=== PATIENT | female | born 1945 | race Caucasian/White ===

== ENCOUNTER 2017-06-29 11:35 | Inpatient (IN) | payer MEDICARE, BC ==
[~2017-06-29] VITALS: Ht 167.6 cm; Wt 73.4 kg
[~2017-06-29 11:35] MED LIST: ACID1TAB7 PO; ALBU1.25 NEB; ALBU18HF INH; AMLO2.5T PO; ASPI-621 PO; ATOR40TA78 PO; BECL8.7A7 INH; CEFD300C37 PO; DOCU-131 PO; LACT1CAP37 PO; LISI-170 PO; LISI2.5T PO; METR500T PO; METR500T8 PO; ONDA4TAB7 PO; POTA20PA25 PO; TIOT18CA INH
[2017-06-29] MEDS ORDERED: SODIUM CHLORIDE FLUSH 10ML SYR IVF ONE (12:00)
[2017-06-29 12:27] LABS: BASOPHILS # (AUTO) 0.01 x10^3/uL (0-0.1); BASOPHILS % (AUTO) 0 % (0-1); EOSINOPHILS % (AUTO) 0 % (1-7); LYMPHOCYTES # (AUTO) 1.38 x10^3/uL (1-3.4); LYMPHOCYTES % (AUTO) 18 % (22-44); MD NO; MEAN CORPUSCULAR HGB CONC 33.9 g/dL (32.4-35.8); MEAN CORPUSCULAR VOLUME 85.6 fL (80-100); MEAN PLATELET VOLUME 9.7 fL (7.4-10.4); MONOCYTES # (AUTO) 0.64 x10^3/uL (0.2-0.8); MONOCYTES % (AUTO) 8 % (2-9); NEUTROPHILS # (AUTO) 5.88 x10^3/uL (1.8-6.8); NEUTROPHILS % (AUTO) 74 % (42-75); PLATELET COUNT 259 x10^3/uL (130-400); RED BLOOD COUNT 5.62 x10^6/uL (3.82-5.3); RED CELL DISTRIBUTION WIDTH 14.6 % (9.6-15.2)
[2017-06-29 12:40] LABS: ALANINE AMINOTRANSFERASE 15 U/L (12-78); ANION GAP 11 mmol/L (5-15); CALCIUM 9.2 mg/dL (8.5-10.1); CHLORIDE 100 mmol/L (98-107); CREATININE 0.98 mg/dL (0.55-1.02)
[2017-06-29 12:43] LABS: ALBUMIN 3.8 g/dL (3.4-5.0); ALKALINE PHOSPHATASE 109 U/L (45-117); BILIRUBIN,TOTAL 0.6 mg/dL (0.2-1.0); TOTAL PROTEIN 8.1 g/dL (6.4-8.2); TROPONIN I < 0.015 ng/mL (0.000-0.045)
[2017-06-29 13:13] LABS: ACETAMINOPHEN < 2 mcg/mL (10-30); SALICYLATE LEVEL < 1.7 mg/dL (2.8-20.0)
[2017-06-29 13:19] LABS: MICROSCOPIC INDICATED
[2017-06-29 13:27] LABS: CULTURE INDICATED? NO
[2017-06-29 13:37] LABS: AMPHETAMINE SCREEN, URINE Negative (Negative); BARBITURATE SCREEN, URINE Negative (Negative); BENZODIAZEPINE SCREEN, URINE Negative (Negative); CANNABINOID SCREEN, URINE Negative (Negative); COCAINE SCREEN, URINE Negative (Negative); METHADONE SCREEN, URINE Negative (Negative); OPIATE SCREEN, URINE Negative (Negative)
[2017-06-29] MEDS ORDERED: SODIUM CHLORIDE 0.9% 1,000ML IVBOLUS ONE (14:00)
[2017-06-29] MEDS: SODIUM CHLORIDE 0.9% 1,000 ML IV SCH ×2 (14:40→19:58)
[2017-06-29] MEDS: ENOXAPARIN 40 MG/0.4 ML SQ SCH (15:00)
[2017-06-29 15:53] VITALS: BP 146/104
[2017-06-29] MEDS: ATORVASTATIN 40 MG TABLET PO SCH (19:59)
[2017-06-29 20:26] VITALS: BP 147/100
[2017-06-30 02:10] VITALS: BP 154/108
[2017-06-30] MEDS ORDERED: LABETALOL 5MG/ML, 20ML IVPush PRN (02:30)
[2017-06-30 05:36] LABS: CHLORIDE 103 mmol/L (98-107)
[2017-06-30 05:45] LABS: ALANINE AMINOTRANSFERASE 15 U/L (12-78); ALBUMIN 3.5 g/dL (3.4-5.0); ALKALINE PHOSPHATASE 103 U/L (45-117); ANION GAP 8 mmol/L (5-15); BILIRUBIN,TOTAL 0.7 mg/dL (0.2-1.0); CALCIUM 9.2 mg/dL (8.5-10.1); CREATININE 0.84 mg/dL (0.55-1.02); TOTAL PROTEIN 7.6 g/dL (6.4-8.2)
[2017-06-30] MEDS: ASPIRIN 81 MG TABLET EC PO SCH (06:07)
[2017-06-30 06:09] LABS: MEAN CORPUSCULAR HEMOGLOBIN 28.5 pg (27.0-34.8); MEAN CORPUSCULAR HGB CONC 33.1 g/dL (32.4-35.8); MEAN CORPUSCULAR VOLUME 86.2 fL (80-100); MEAN PLATELET VOLUME 11.3 fL (7.4-10.4); PLATELET COUNT 229 x10^3/uL (130-400); RED BLOOD COUNT 5.41 x10^6/uL (3.82-5.3); RED CELL DISTRIBUTION WIDTH 14.9 % (9.6-15.2)
[2017-06-30 06:37] LABS: BASOPHILS # (AUTO) 0.04 x10^3/uL (0-0.1); BASOPHILS % (AUTO) 1 % (0-1); EOSINOPHILS % (AUTO) 0 % (1-7); LYMPHOCYTES # (AUTO) 2.92 x10^3/uL (1-3.4); LYMPHOCYTES % (AUTO) 36 % (22-44); MD MORPH REVIEW ONLY; MONOCYTES # (AUTO) 1.05 x10^3/uL (0.2-0.8); MONOCYTES % (AUTO) 13 % (2-9); NEUTROPHILS # (AUTO) 4.08 x10^3/uL (1.8-6.8); NEUTROPHILS % (AUTO) 50 % (42-75)
[2017-06-30 06:38] LABS: <RBC MORPHOLOGY> NORMAL
[2017-06-30 06:39] LABS: <PLATELET ESTIMATE> ADEQUATE; HYPOGRAN PLTS 1+; LARGE PLATELETS 1+
[2017-06-30 08:14] VITALS: BP 127/90
[2017-06-30] MEDS: SODIUM CHLORIDE 0.9% 1,000 ML IV SCH ×2 (09:31→21:46)
[2017-06-30] MEDS: AMLODIPINE 5 MG TABLET PO SCH (09:31)
[2017-06-30] MEDS: LISINOPRIL 20 MG TABLET PO SCH (09:31)
[2017-06-30 13:57] VITALS: BP 120/79
[2017-06-30] MEDS: ENOXAPARIN 40 MG/0.4 ML SQ SCH (15:00)
[2017-06-30 19:26] VITALS: BP 117/74
[2017-06-30] MEDS: ATORVASTATIN 40 MG TABLET PO SCH (20:03)
[2017-07-01 01:48] VITALS: BP 122/75
[2017-07-01] MEDS: ASPIRIN 81 MG TABLET EC PO SCH (05:08)
[2017-07-01 07:18] VITALS: BP 149/83
[2017-07-01] MEDS: LISINOPRIL 20 MG TABLET PO SCH (10:13)
[2017-07-01] MEDS: AMLODIPINE 5 MG TABLET PO SCH (10:14)
[2017-07-01] MEDS: SODIUM CHLORIDE 0.9% 1,000 ML IV SCH (11:42)
[2017-07-01 13:29] VITALS: BP 127/82
[2017-07-01] MEDS: ENOXAPARIN 40 MG/0.4 ML SQ SCH (15:00)
[2017-07-01 15:44] LABS: CLOSTRIDIUM DIFFICILE ANTIGEN NEGATIVE; CLOSTRIDIUM DIFFICILE TOXIN NEGATIVE (Negative)
[2017-07-01] MEDS: ATORVASTATIN 40 MG TABLET PO SCH (19:28)
[2017-07-01 19:56] VITALS: BP 150/89
[2017-07-02 01:45] VITALS: BP 160/94
[2017-07-02] MEDS: ASPIRIN 81 MG TABLET EC PO SCH (05:30)
[2017-07-02] MEDS: SODIUM CHLORIDE 0.9% 1,000 ML IV SCH (05:31)
[2017-07-02 07:15] VITALS: BP 154/91
[2017-07-02] MEDS: AMLODIPINE 5 MG TABLET PO SCH (09:53)
[2017-07-02] MEDS: LISINOPRIL 20 MG TABLET PO SCH (09:54)
[2017-07-02 14:03] VITALS: BP 131/84
[2017-07-02] MEDS: ENOXAPARIN 40 MG/0.4 ML SQ SCH (15:00)
== END 2017-07-02 16:45 | disposition home or self-care (01) | DRG 865 ==
LOC: ED 14:39 → 3NE 14:40 → ED 15:49 → DCLOUNGE 07-02 16:05
PROVIDERS: ADMIT Family Medicine; ATTEND Family Medicine
PROC: 0T9B70Z Drainage of Bladder with Drainage Device, Via Natural or Artificial Opening (ICD-10-PCS; principal; 2017-06-29)
DX: B34.9 Viral infection, unspecified (principal); G93.41 Metabolic encephalopathy; I27.20 Pulmonary hypertension, unspecified; E87.1 Hypo-osmolality and hyponatremia; G30.0 Alzheimer's disease with early onset; F02.80 Dementia in other diseases classified elsewhere, unspecified severity, without behavioral disturbance, psychotic disturbance, mood disturbance, and anxiety; I11.9 Hypertensive heart disease without heart failure; E78.5 Hyperlipidemia, unspecified; E86.0 Dehydration; F41.9 Anxiety disorder, unspecified; J44.9 Chronic obstructive pulmonary disease, unspecified; R32 Unspecified urinary incontinence; Z82.49 Family history of ischemic heart disease and other diseases of the circulatory system; Z86.73 Personal history of transient ischemic attack (TIA), and cerebral infarction without residual deficits; Z87.891 Personal history of nicotine dependence; Z88.6 Allergy status to analgesic agent
CPT/HCPCS: 36415; 70450; 71045; 80053; 80307; 80329; 81001; 82140; 83605; 83735; 84484; 85025; 87040; 87324; 93005; 96360; 92523-GN; G0480; J7030

== ENCOUNTER 2017-12-10 15:07 | Inpatient (IN) | payer MEDICARE, OTHER ==
[~2017-12-10] VITALS: Ht 165.1 cm; Wt 73.0 kg
[~2017-12-10 15:07] MED LIST changes: -AMLO2.5T PO; +AMLO2.5T5 PO; -ASPI-621 PO; +ASPI81TA45 PO; +METR-90 PO; -METR500T8 PO
--- NOTE | 2017-12-10 15:13 | NUR ---
BIBA, PT WAS FOUND PRONE ON BED BY FAMILY. PT WAS SOILED NON-VERBAL. PT PRESENTS TO THE ER NON-VERBAL, WILL OPEN HER EYES AND TURN TOWARDS WHEN HER NAME IS CALLED. PT DOES NOT FOLLOW COMMANDS, MOVES ALL EXTREMITIES. PT HAS A GCS OF 9. PT ON CONTINUOUS SPO2, CARDIAC, AND BLOOD PRESSURE MONITOR. AWAITING ORDERS.
--- NOTE | 2017-12-10 15:25 | NUR ---
PT'S SON AT BEDSIDE. ATTEMPTING TO GET MORE INFORMATION FROM SON.
--- NOTE | 2017-12-10 15:49 | NUR ---
Bud brumfield in [facility] - 12/10/17 at 1554 by CLOTILDE O2 while ambulating @91 to 92%.
--- NOTE | 2017-12-10 15:51 | NUR ---
PT TAKEN TO CT
[2017-12-10 15:59] LABS: INTERNATIONAL NORMALIZED RATIO 1.08 (0.93-1.1); PROTHROMBIN TIME 11.2 Seconds (9.6-11.5)
[2017-12-10 16:00] LABS: ALANINE AMINOTRANSFERASE 16 U/L (12-78); ALBUMIN 3.7 g/dL (3.4-5.0); ANION GAP 7 mmol/L (5-15); CALCIUM 9.5 mg/dL (8.5-10.1); CHLORIDE 107 mmol/L (98-107); CREATININE 0.87 mg/dL (0.55-1.02)
[2017-12-10] MEDS ORDERED: LABETALOL 5MG/ML, 20ML IVPush ONE (16:00)
[2017-12-10 16:03] LABS: ALKALINE PHOSPHATASE 120 U/L (45-117); BILIRUBIN,TOTAL 0.3 mg/dL (0.2-1.0); TOTAL PROTEIN 7.9 g/dL (6.4-8.2)
[2017-12-10] MEDS ORDERED: LABETALOL 5MG/ML, 20ML ONE (16:10)
[2017-12-10 16:15] LABS: MEAN CORPUSCULAR HEMOGLOBIN 27.4 pg (27.0-34.8); MEAN CORPUSCULAR HGB CONC 32.9 g/dL (32.4-35.8); MEAN CORPUSCULAR VOLUME 83.3 fL (80-100); MEAN PLATELET VOLUME 10.6 fL (7.4-10.4); PLATELET COUNT 228 x10^3/uL (130-400); RED BLOOD COUNT 5.62 x10^6/uL (3.82-5.3); RED CELL DISTRIBUTION WIDTH 14.8 % (9.6-15.2)
[2017-12-10 16:16] LABS: BASOPHILS # (AUTO) 0.03 x10^3/uL (0-0.1); BASOPHILS % (AUTO) 1 % (0-1); EOSINOPHILS # (AUTO) 0.01 x10^3/uL (0-0.4); EOSINOPHILS % (AUTO) 0 % (1-7); LYMPHOCYTES % (AUTO) 23 % (22-44); MD SCAN; MONOCYTES % (AUTO) 8 % (2-9); NEUTROPHILS # (AUTO) 3.61 x10^3/uL (1.8-6.8); NEUTROPHILS % (AUTO) 69 % (42-75)
--- NOTE | 2017-12-10 16:20 | NUR ---
TASK RN: PT MEDICATED PER EMAR FOR HTN W/ GOAL SBP OF 150mmHg, PER ERP. PT SITTING W/ HOB GREATER THAN 30 DEGREES. SECOND IV ESTABLISHED. SON UPDATED TO POC (ADMIT) AND DEMONSTRATES UNDERSTANDING. RUE WEAKNESS NOTED; MOVES ALL OTHER EXTREMITIES. PT EYE OPENING W/ VERBAL STIMULI. PWD.
[2017-12-10 16:29] LABS: CULTURE INDICATED? YES; MICROSCOPIC INDICATED
--- NOTE | 2017-12-10 17:01 | NUR ---
REPORT GIVEN TO LUCHO
[2017-12-10] MEDS ORDERED: POLYETHYLENE GLYCOL 17 GM PACKET PO PRN (17:30)
[2017-12-10] MEDS ORDERED: INSTRUCTION SEE COMMENTS XX ONE (17:30)
[2017-12-10] MEDS ORDERED: DOCUSATE 100 MG CAPSULE PO PRN (17:30)
[2017-12-10] MEDS ORDERED: BISACODYL 10 MG SUPP PR PRN (17:30)
[2017-12-10] MEDS ORDERED: ONDANSETRON 2MG/ML, 2ML IVPush PRN (17:30)
[2017-12-10] MEDS: SODIUM CHLORIDE 0.9% 1,000 ML IV SCH (18:23)
[2017-12-10] MEDS: CEFTRIAXONE 1,000 MG in SODIUM CHLORIDE 0.9% 50 ML IV SCH (18:23)
[2017-12-10] MEDS: FAMOTIDINE 20 MG/2 ML IVPush SCH (20:48)
[2017-12-10] MEDS: ATORVASTATIN 80 MG TABLET PO SCH (20:48)
[2017-12-11 04:00] VITALS: BP 124/80
[2017-12-11 04:56] LABS: ALANINE AMINOTRANSFERASE 12 U/L (12-78); ALBUMIN 3.3 g/dL (3.4-5.0); ANION GAP 8 mmol/L (5-15); CALCIUM 8.9 mg/dL (8.5-10.1); CHLORIDE 108 mmol/L (98-107); CHOLESTEROL, TOTAL 117 mg/dL (140-239); CREATININE 0.61 mg/dL (0.55-1.02)
[2017-12-11 04:58] LABS: ALKALINE PHOSPHATASE 109 U/L (45-117); BILIRUBIN,TOTAL 0.3 mg/dL (0.2-1.0); CHOL/HDL RATIO 1.8; HDL CHOL % 56 % (28-40); HDL CHOLESTEROL (DIRECT) 66 mg/dL (40-60); LDL CHOLESTEROL,CALCULATED 35 mg/dL (54-169); LDL/HDL RATIO 0.5 (0.5-3.0); TOTAL PROTEIN 7.2 g/dL (6.4-8.2); TRIGLYCERIDES 79 mg/dL (50-200); VLDL CHOLESTEROL 16 mg/dL (0-25)
[2017-12-11 07:06] LABS: BASOPHILS # (AUTO) 0.03 x10^3/uL (0-0.1); BASOPHILS % (AUTO) 0 % (0-1); EOSINOPHILS % (AUTO) 0 % (1-7); LYMPHOCYTES # (AUTO) 1.28 x10^3/uL (1-3.4); LYMPHOCYTES % (AUTO) 11 % (22-44); MD SCAN; MEAN CORPUSCULAR HEMOGLOBIN 27.6 pg (27.0-34.8); MEAN CORPUSCULAR HGB CONC 33.2 g/dL (32.4-35.8); MEAN CORPUSCULAR VOLUME 83.3 fL (80-100); MEAN PLATELET VOLUME 10.3 fL (7.4-10.4); MONOCYTES # (AUTO) 0.89 x10^3/uL (0.2-0.8); MONOCYTES % (AUTO) 8 % (2-9); NEUTROPHILS # (AUTO) 9.37 x10^3/uL (1.8-6.8); NEUTROPHILS % (AUTO) 81 % (42-75); PLATELET COUNT 215 x10^3/uL (130-400); RED BLOOD COUNT 5.22 x10^6/uL (3.82-5.3)
[2017-12-11] MEDS: SODIUM CHLORIDE 0.9% 1,000 ML IV SCH ×2 (08:40→20:16)
[2017-12-11] MEDS: FAMOTIDINE 20 MG/2 ML IVPush SCH ×2 (09:06→20:16)
--- NOTE | 2017-12-11 13:49 | NUR ---
TF goal recs: Jevity 1.2 @ 55 ml/hour
[2017-12-11] MEDS: CEFTRIAXONE 1,000 MG in SODIUM CHLORIDE 0.9% 50 ML IV SCH (18:29)
[2017-12-11] MEDS: ATORVASTATIN 80 MG TABLET PO SCH (20:16)
[2017-12-12 04:00] VITALS: BP 136/94
[2017-12-12] MEDS ORDERED: VANCOMYCIN PER PHARMACY MC PRN (07:30)
[2017-12-12] MEDS: VANCOMYCIN 1,300 MG in SODIUM CHLORIDE 0.9% 250 ML IV SCH (07:53)
[2017-12-12] MEDS ORDERED: PHARMACOKINETIC CONSULTATION MC ONE (08:00)
[2017-12-12] MEDS ORDERED: PHARMACOKINETIC MONITORING MC PRN (08:00)
[2017-12-12] MEDS: FAMOTIDINE 20 MG/2 ML IVPush SCH (09:11)
[2017-12-12] MEDS: LISINOPRIL 20 MG TABLET PO SCH (11:00)
[2017-12-12] MEDS: AMLODIPINE 5 MG TABLET PO SCH (11:00)
[2017-12-12] MEDS: SODIUM CHLORIDE 0.9% 1,000 ML IV SCH (14:12)
[2017-12-12] MEDS: CEFTRIAXONE 1,000 MG in SODIUM CHLORIDE 0.9% 50 ML IV SCH (17:47)
[2017-12-12] MEDS: ACETAMINOPHEN 325 MG TABLET PO PRN (21:49)
[2017-12-12] MEDS: ATORVASTATIN 80 MG TABLET PO SCH (21:49)
[2017-12-13] MEDS: SODIUM CHLORIDE 0.9% 1,000 ML IV SCH ×2 (02:29→17:18)
[2017-12-13 04:00] VITALS: BP 134/76
[2017-12-13 04:25] LABS: BASOPHILS # (AUTO) 0.03 x10^3/uL (0-0.1); BASOPHILS % (AUTO) 0 % (0-1); EOSINOPHILS # (AUTO) 0.02 x10^3/uL (0-0.4); EOSINOPHILS % (AUTO) 0 % (1-7); LYMPHOCYTES # (AUTO) 1.23 x10^3/uL (1-3.4); LYMPHOCYTES % (AUTO) 17 % (22-44); MD NO; MEAN CORPUSCULAR HEMOGLOBIN 27.7 pg (27.0-34.8); MEAN CORPUSCULAR HGB CONC 32.9 g/dL (32.4-35.8); MEAN CORPUSCULAR VOLUME 84.4 fL (80-100); MEAN PLATELET VOLUME 9.4 fL (7.4-10.4); MONOCYTES # (AUTO) 0.97 x10^3/uL (0.2-0.8); MONOCYTES % (AUTO) 13 % (2-9); NEUTROPHILS # (AUTO) 5.02 x10^3/uL (1.8-6.8); NEUTROPHILS % (AUTO) 69 % (42-75); PLATELET COUNT 219 x10^3/uL (130-400); RED BLOOD COUNT 4.89 x10^6/uL (3.82-5.3); RED CELL DISTRIBUTION WIDTH 14.4 % (9.6-15.2)
[2017-12-13] MEDS: VANCOMYCIN 1,300 MG in SODIUM CHLORIDE 0.9% 250 ML IV SCH (08:20)
[2017-12-13] MEDS: LISINOPRIL 20 MG TABLET PO SCH (08:21)
[2017-12-13] MEDS: AMLODIPINE 5 MG TABLET PO SCH (08:21)
[2017-12-13 11:10] VITALS: BP 166/98
[2017-12-13] MEDS: ENALAPRILAT 1.25 MG/ML, 2ML IV PRN (11:58)
[2017-12-13 12:46] VITALS: BP 130/85
[2017-12-13 13:43] VITALS: BP 140/86
[2017-12-13] MEDS: CEFTRIAXONE 1,000 MG in SODIUM CHLORIDE 0.9% 50 ML IV SCH (17:18)
[2017-12-13 19:20] VITALS: BP 155/91
[2017-12-13] MEDS: ATORVASTATIN 80 MG TABLET PO SCH (21:00)
[2017-12-14 01:43] VITALS: BP 166/100
[2017-12-14 02:21] VITALS: BP 166/98
[2017-12-14] MEDS: ENALAPRILAT 1.25 MG/ML, 2ML IV PRN (02:28)
[2017-12-14] MEDS: SODIUM CHLORIDE 0.9% 1,000 ML IV SCH ×2 (06:33→21:18)
[2017-12-14 06:55] VITALS: BP 174/95
[2017-12-14] MEDS: AMLODIPINE 5 MG TABLET PO SCH (07:50)
[2017-12-14] MEDS: LISINOPRIL 20 MG TABLET PO SCH (07:50)
[2017-12-14] MEDS: VANCOMYCIN 1,300 MG in SODIUM CHLORIDE 0.9% 250 ML IV SCH (09:10)
[2017-12-14 12:54] VITALS: BP 177/92
[2017-12-14] MEDS: LABETALOL 5MG/ML, 20ML IVPush PRN (13:30)
[2017-12-14] MEDS: CEFTRIAXONE 1,000 MG in SODIUM CHLORIDE 0.9% 50 ML IV SCH (17:36)
[2017-12-14 19:50] VITALS: BP 156/102
[2017-12-14] MEDS: ATORVASTATIN 80 MG TABLET PO SCH (21:18)
[2017-12-15] VITALS (8 sets, daily range): BP systolic 152–184; BP diastolic 88–116
[2017-12-15] MEDS: LABETALOL 5MG/ML, 20ML IVPush PRN ×2 (02:05→20:16)
[2017-12-15] MEDS: SODIUM CHLORIDE 0.9% 1,000 ML IV SCH (08:22)
[2017-12-15] MEDS: AMLODIPINE 5 MG TABLET PO SCH (08:22)
[2017-12-15] MEDS: LISINOPRIL 20 MG TABLET PO SCH (08:22)
[2017-12-15] MEDS: ENALAPRILAT 1.25 MG/ML, 2ML IV PRN ×2 (11:14→22:30)
[2017-12-15] MEDS ORDERED: cloniDINE 0.1MG PATCH TD SCH (17:00)
[2017-12-15] MEDS: ATORVASTATIN 80 MG TABLET PO SCH (20:16)
[2017-12-16] VITALS (10 sets, daily range): BP systolic 148–174; BP diastolic 97–111
[2017-12-16] MEDS: LABETALOL 5MG/ML, 20ML IVPush PRN ×4 (00:06→23:55)
[2017-12-16] MEDS: SODIUM CHLORIDE 0.9% 1,000 ML IV SCH ×2 (00:11→14:36)
[2017-12-16] MEDS: ENALAPRILAT 1.25 MG/ML, 2ML IV PRN ×4 (04:17→23:40)
[2017-12-16] MEDS: AMLODIPINE 5 MG TABLET PO SCH (08:15)
[2017-12-16] MEDS: LISINOPRIL 20 MG TABLET PO SCH (08:15)
[2017-12-16] MEDS: ATORVASTATIN 80 MG TABLET PO SCH (19:50)
[2017-12-17] VITALS (16 sets, daily range): BP systolic 144–177; BP diastolic 91–119
[2017-12-17] MEDS: LABETALOL 5MG/ML, 20ML IVPush PRN ×4 (04:20→22:16)
[2017-12-17] MEDS: SODIUM CHLORIDE 0.9% 1,000 ML IV SCH ×2 (04:20→17:20)
[2017-12-17] MEDS: ENALAPRILAT 1.25 MG/ML, 2ML IV PRN ×3 (04:58→21:06)
[2017-12-17] MEDS: LISINOPRIL 20 MG TABLET PO SCH (09:18)
[2017-12-17] MEDS: AMLODIPINE 5 MG TABLET PO SCH (09:18)
[2017-12-17] MEDS: METOPROLOL TARTRATE 50 MG TABLET PO SCH ×2 (17:20→20:11)
[2017-12-17] MEDS: ATORVASTATIN 80 MG TABLET PO SCH (20:11)
[2017-12-18] VITALS (7 sets, daily range): BP systolic 143–165; BP diastolic 87–96
[2017-12-18] MEDS: ENALAPRILAT 1.25 MG/ML, 2ML IV PRN (02:33)
[2017-12-18] MEDS: METOPROLOL TARTRATE 50 MG TABLET PO SCH ×2 (09:33→20:42)
[2017-12-18] MEDS: SODIUM CHLORIDE 0.9% 1,000 ML IV SCH ×2 (09:33→22:14)
[2017-12-18] MEDS: AMLODIPINE 5 MG TABLET PO SCH (09:33)
[2017-12-18] MEDS: LISINOPRIL 20 MG TABLET PO SCH (09:33)
[2017-12-18] MEDS: ATORVASTATIN 80 MG TABLET PO SCH (20:41)
[2017-12-19 01:30] VITALS: BP 162/101
[2017-12-19 02:00] VITALS: BP 165/95
[2017-12-19] MEDS: LABETALOL 5MG/ML, 20ML IVPush PRN (02:43)
[2017-12-19 02:44] VITALS: BP 167/94
[2017-12-19 04:12] VITALS: BP 146/83
[2017-12-19 07:12] VITALS: BP 158/106
[2017-12-19] MEDS: METOPROLOL TARTRATE 50 MG TABLET PO SCH ×2 (09:31→20:27)
[2017-12-19] MEDS: AMLODIPINE 5 MG TABLET PO SCH (09:31)
[2017-12-19] MEDS: LISINOPRIL 20 MG TABLET PO SCH (09:31)
[2017-12-19] MEDS: SODIUM CHLORIDE 0.9% 1,000 ML IV SCH (10:40)
[2017-12-19 20:00] VITALS: BP 158/95
[2017-12-19] MEDS: ATORVASTATIN 80 MG TABLET PO SCH (20:27)
[2017-12-20 00:12] VITALS: BP 157/94
[2017-12-20] MEDS: SODIUM CHLORIDE 0.9% 1,000 ML IV SCH ×2 (00:12→13:20)
[2017-12-20 04:00] VITALS: BP 152/97
[2017-12-20 08:23] VITALS: BP 164/93
[2017-12-20] MEDS: LISINOPRIL 20 MG TABLET PO SCH (09:46)
[2017-12-20] MEDS: METOPROLOL TARTRATE 50 MG TABLET PO SCH ×2 (09:47→22:25)
[2017-12-20] MEDS: AMLODIPINE 5 MG TABLET PO SCH (09:47)
[2017-12-20 13:40] VITALS: BP 145/90
[2017-12-20 19:56] VITALS: BP 145/82
[2017-12-20] MEDS: ATORVASTATIN 80 MG TABLET PO SCH (22:25)
[2017-12-21 02:34] VITALS: BP 141/94
[2017-12-21] MEDS: SODIUM CHLORIDE 0.9% 1,000 ML IV SCH ×2 (03:48→18:00)
[2017-12-21 06:48] VITALS: BP 156/94
[2017-12-21] MEDS: LISINOPRIL 20 MG TABLET PO SCH (09:12)
[2017-12-21] MEDS: AMLODIPINE 5 MG TABLET PO SCH (09:12)
[2017-12-21] MEDS: METOPROLOL TARTRATE 50 MG TABLET PO SCH ×2 (09:12→21:25)
[2017-12-21 12:22] VITALS: BP 152/98
[2017-12-21] MEDS ORDERED: GADOBUTROL 7.5 MMOL/7.5 ML PFS ONE (14:00)
[2017-12-21 20:07] VITALS: BP 155/89
[2017-12-21] MEDS: ATORVASTATIN 80 MG TABLET PO SCH (21:24)
[2017-12-22 02:33] VITALS: BP 143/91
[2017-12-22] MEDS: SODIUM CHLORIDE 0.9% 1,000 ML IV SCH ×2 (06:34→20:05)
[2017-12-22 07:16] VITALS: BP 153/96
[2017-12-22] MEDS: LISINOPRIL 20 MG TABLET PO SCH (07:59)
[2017-12-22] MEDS: METOPROLOL TARTRATE 50 MG TABLET PO SCH ×2 (07:59→20:05)
[2017-12-22] MEDS: AMLODIPINE 5 MG TABLET PO SCH (07:59)
[2017-12-22 09:51] VITALS: BP 165/91
[2017-12-22 10:00] VITALS: BP 151/94
[2017-12-22] MEDS ORDERED: ALBUTEROL SULFATE 2.5 MG/3 ML NPPB PRN (11:00)
[2017-12-22 13:22] VITALS: BP 144/97
[2017-12-22 19:29] VITALS: BP 155/96
[2017-12-22] MEDS: ATORVASTATIN 80 MG TABLET PO SCH (20:05)
[2017-12-23 01:08] VITALS: BP 151/91
[2017-12-23 04:05] VITALS: BP 152/93
[2017-12-23 06:49] VITALS: BP 144/93
[2017-12-23 09:31] LABS: BASOPHILS # (AUTO) 0.09 x10^3/uL (0-0.1); BASOPHILS % (AUTO) 1 % (0-1); EOSINOPHILS # (AUTO) 0.14 x10^3/uL (0-0.4); EOSINOPHILS % (AUTO) 2 % (1-7); LYMPHOCYTES # (AUTO) 2.58 x10^3/uL (1-3.4); LYMPHOCYTES % (AUTO) 31 % (22-44); MD NO; MEAN CORPUSCULAR HEMOGLOBIN 27.6 pg (27.0-34.8); MEAN CORPUSCULAR HGB CONC 33.6 g/dL (32.4-35.8); MEAN CORPUSCULAR VOLUME 82.3 fL (80-100); MEAN PLATELET VOLUME 9.6 fL (7.4-10.4); MONOCYTES # (AUTO) 0.91 x10^3/uL (0.2-0.8); MONOCYTES % (AUTO) 11 % (2-9); NEUTROPHILS # (AUTO) 4.62 x10^3/uL (1.8-6.8); NEUTROPHILS % (AUTO) 56 % (42-75); PLATELET COUNT 316 x10^3/uL (130-400); RED BLOOD COUNT 4.94 x10^6/uL (3.82-5.3); RED CELL DISTRIBUTION WIDTH 14.3 % (9.6-15.2)
[2017-12-23 09:41] LABS: INTERNATIONAL NORMALIZED RATIO 1.08 (0.93-1.1); PROTHROMBIN TIME 11.2 Seconds (9.6-11.5)
[2017-12-23 09:43] LABS: ANION GAP 9 mmol/L (5-15); CHLORIDE 100 mmol/L (98-107); CREATININE 0.52 mg/dL (0.55-1.02)
[2017-12-23] MEDS: LISINOPRIL 20 MG TABLET PO SCH (10:27)
[2017-12-23] MEDS: AMLODIPINE 5 MG TABLET PO SCH (10:28)
[2017-12-23] MEDS: SODIUM CHLORIDE 0.9% 1,000 ML IV SCH (10:28)
[2017-12-23] MEDS: METOPROLOL TARTRATE 50 MG TABLET PO SCH ×2 (10:28→21:35)
[2017-12-23] MEDS ORDERED: PROPOFOL 10 MG/ML, 50ML ONE (11:42)
[2017-12-23] MEDS ORDERED: CEFAZOLIN 1,000 MG ONE (11:42)
[2017-12-23] MEDS ORDERED: ONDANSETRON 2MG/ML, 2ML IV PRN (12:30)
[2017-12-23] MEDS ORDERED: FENTANYL PF 100 MCG/2ML IV PRN (12:30)
[2017-12-23 13:01] VITALS: BP 122/83
[2017-12-23 21:32] VITALS: BP 137/78
[2017-12-23] MEDS: ATORVASTATIN 80 MG TABLET PO SCH (21:35)
[2017-12-24 01:11] VITALS: BP 151/91
[2017-12-24] MEDS: SODIUM CHLORIDE 0.9% 1,000 ML IV SCH ×2 (06:07→16:50)
[2017-12-24 08:14] VITALS: BP 136/91
[2017-12-24] MEDS: AMLODIPINE 5 MG TABLET PO SCH (09:07)
[2017-12-24] MEDS: METOPROLOL TARTRATE 50 MG TABLET PO SCH ×2 (09:08→21:04)
[2017-12-24] MEDS: LISINOPRIL 20 MG TABLET PO SCH (09:08)
[2017-12-24 14:16] VITALS: BP 141/86
[2017-12-24 20:00] VITALS: BP 141/90
[2017-12-24] MEDS: ATORVASTATIN 80 MG TABLET PO SCH (21:04)
[2017-12-25] VITALS: BP 155/88
[2017-12-25 02:28] VITALS: BP 155/81
[2017-12-25] MEDS: SODIUM CHLORIDE 0.9% 1,000 ML IV SCH (05:06)
[2017-12-25 07:21] VITALS: BP 150/89
[2017-12-25] MEDS: LISINOPRIL 20 MG TABLET PO SCH (11:00)
[2017-12-25] MEDS: AMLODIPINE 5 MG TABLET PO SCH (11:00)
[2017-12-25] MEDS: METOPROLOL TARTRATE 50 MG TABLET PO SCH ×2 (11:00→22:27)
[2017-12-25 13:52] VITALS: BP 135/86
[2017-12-25] MEDS ORDERED: CLON1PAT2 TD (13:54)
[2017-12-25] MEDS ORDERED: AMLO-150 PO (13:54)
[2017-12-25] MEDS ORDERED: METO50TA82 PO (13:54)
[2017-12-25] MEDS ORDERED: ATOR-2 PO (13:54)
[2017-12-25] MEDS ORDERED: DOCU-131 PO (13:54)
[2017-12-25 18:46] VITALS: BP 138/91
[2017-12-25] MEDS: ATORVASTATIN 80 MG TABLET PO SCH (22:27)
[2017-12-26 00:20] VITALS: BP 146/93
[2017-12-26 08:29] VITALS: BP 144/88
[2017-12-26] MEDS: LISINOPRIL 20 MG TABLET PO SCH (08:31)
[2017-12-26] MEDS: METOPROLOL TARTRATE 50 MG TABLET PO SCH ×2 (08:31→20:08)
[2017-12-26] MEDS: AMLODIPINE 5 MG TABLET PO SCH (08:32)
[2017-12-26 14:20] VITALS: BP 128/74
[2017-12-26 19:57] VITALS: BP 128/90
[2017-12-26] MEDS: ATORVASTATIN 80 MG TABLET PO SCH (20:08)
[2017-12-27 03:40] VITALS: BP 110/67
[2017-12-27 03:46] VITALS: BP 135/93
[2017-12-27 07:07] VITALS: BP 108/73
[2017-12-27 08:53] VITALS: BP 116/78
[2017-12-27] MEDS: AMLODIPINE 5 MG TABLET PO SCH (08:56)
[2017-12-27] MEDS: METOPROLOL TARTRATE 50 MG TABLET PO SCH ×2 (08:56→19:54)
[2017-12-27] MEDS: LISINOPRIL 20 MG TABLET PO SCH (08:56)
[2017-12-27 14:41] VITALS: BP 135/84
[2017-12-27 19:25] VITALS: BP 124/83
[2017-12-27] MEDS: ATORVASTATIN 80 MG TABLET PO SCH (19:54)
[2017-12-28 01:24] VITALS: BP 117/77
[2017-12-28 07:48] VITALS: BP 126/83
[2017-12-28] MEDS: LISINOPRIL 20 MG TABLET PO SCH (08:47)
[2017-12-28] MEDS: METOPROLOL TARTRATE 50 MG TABLET PO SCH ×2 (08:48→20:20)
[2017-12-28] MEDS: AMLODIPINE 5 MG TABLET PO SCH (08:48)
[2017-12-28 13:48] VITALS: BP 113/79
[2017-12-28 20:19] VITALS: BP 139/86
[2017-12-28] MEDS: ATORVASTATIN 80 MG TABLET PO SCH (20:20)
[2017-12-29 03:19] VITALS: BP 119/89
[2017-12-29 07:46] VITALS: BP 120/87
[2017-12-29] MEDS: METOPROLOL TARTRATE 50 MG TABLET PO SCH ×2 (08:19→22:53)
[2017-12-29] MEDS: LISINOPRIL 20 MG TABLET PO SCH (08:19)
[2017-12-29] MEDS: AMLODIPINE 5 MG TABLET PO SCH (08:19)
[2017-12-29 14:09] VITALS: BP 124/82
[2017-12-29 20:45] VITALS: BP 122/85
[2017-12-29] MEDS: ATORVASTATIN 80 MG TABLET PO SCH (22:53)
[2017-12-30 01:25] VITALS: BP 98/59
[2017-12-30 07:52] VITALS: BP 114/70
[2017-12-30 10:00] VITALS: BP 123/78
[2017-12-30] MEDS: METOPROLOL TARTRATE 50 MG TABLET PO SCH ×2 (10:06→21:26)
[2017-12-30] MEDS: LISINOPRIL 20 MG TABLET PO SCH (10:06)
[2017-12-30] MEDS: AMLODIPINE 5 MG TABLET PO SCH (10:06)
[2017-12-30 14:39] VITALS: BP 109/73
[2017-12-30 18:46] VITALS: BP 112/78
[2017-12-30] MEDS: ATORVASTATIN 80 MG TABLET PO SCH (21:26)
[2017-12-31 01:14] VITALS: BP 103/73
[2017-12-31 05:31] LABS: ANION GAP 6 mmol/L (5-15); CALCIUM 9.4 mg/dL (8.5-10.1); CHLORIDE 98 mmol/L (98-107); CREATININE 0.63 mg/dL (0.55-1.02)
[2017-12-31 05:42] LABS: BASOPHILS # (AUTO) 0.06 x10^3/uL (0-0.1); BASOPHILS % (AUTO) 1 % (0-1); EOSINOPHILS # (AUTO) 0.08 x10^3/uL (0-0.4); EOSINOPHILS % (AUTO) 1 % (1-7); LYMPHOCYTES # (AUTO) 2.17 x10^3/uL (1-3.4); LYMPHOCYTES % (AUTO) 33 % (22-44); MD NO; MEAN CORPUSCULAR HEMOGLOBIN 27.3 pg (27.0-34.8); MEAN CORPUSCULAR HGB CONC 33.1 g/dL (32.4-35.8); MEAN CORPUSCULAR VOLUME 82.3 fL (80-100); MEAN PLATELET VOLUME 10.3 fL (7.4-10.4); MONOCYTES # (AUTO) 0.81 x10^3/uL (0.2-0.8); MONOCYTES % (AUTO) 12 % (2-9); NEUTROPHILS # (AUTO) 3.54 x10^3/uL (1.8-6.8); NEUTROPHILS % (AUTO) 53 % (42-75); PLATELET COUNT 299 x10^3/uL (130-400); RED BLOOD COUNT 5.02 x10^6/uL (3.82-5.3); RED CELL DISTRIBUTION WIDTH 14.1 % (9.6-15.2)
[2017-12-31 07:36] VITALS: BP 114/77
[2017-12-31] MEDS: LISINOPRIL 20 MG TABLET PO SCH (09:48)
[2017-12-31] MEDS: AMLODIPINE 5 MG TABLET PO SCH (09:49)
[2017-12-31] MEDS: METOPROLOL TARTRATE 50 MG TABLET PO SCH ×2 (09:49→21:33)
[2017-12-31 13:15] VITALS: BP 104/74
[2017-12-31 21:02] VITALS: BP 111/73
[2017-12-31] MEDS: ATORVASTATIN 80 MG TABLET PO SCH (21:33)
[2018-01-01 02:00] VITALS: BP 109/79
[2018-01-01 07:50] VITALS: BP 96/78
[2018-01-01 08:24] VITALS: BP 101/57
[2018-01-01 10:01] VITALS: BP 110/70
[2018-01-01] MEDS: METOPROLOL TARTRATE 50 MG TABLET PO SCH ×2 (10:05→20:03)
[2018-01-01] MEDS: AMLODIPINE 5 MG TABLET PO SCH (10:05)
[2018-01-01] MEDS: LISINOPRIL 20 MG TABLET PO SCH (10:05)
[2018-01-01 13:54] VITALS: BP 107/73
[2018-01-01] MEDS: ATORVASTATIN 80 MG TABLET PO SCH (20:03)
[2018-01-01 21:07] VITALS: BP 134/89
[2018-01-02] VITALS (8 sets, daily range): BP systolic 89–109; BP diastolic 56–80
[2018-01-02] MEDS: LISINOPRIL 20 MG TABLET PO SCH (11:11)
[2018-01-02] MEDS: AMLODIPINE 5 MG TABLET PO SCH (11:11)
[2018-01-02] MEDS: METOPROLOL TARTRATE 50 MG TABLET PO SCH ×2 (11:11→21:00)
[2018-01-02] MEDS: ATORVASTATIN 80 MG TABLET PO SCH (21:00)
[2018-01-03 01:40] VITALS: BP 108/72
[2018-01-03 07:30] VITALS: BP 93/67
[2018-01-03] MEDS: AMLODIPINE 5 MG TABLET PO SCH (09:00)
[2018-01-03] MEDS: LISINOPRIL 20 MG TABLET PO SCH (09:00)
[2018-01-03 12:37] VITALS: BP 103/68
[2018-01-03] MEDS: METOPROLOL TARTRATE 50 MG TABLET PO SCH ×2 (14:15→23:43)
[2018-01-03 20:02] VITALS: BP 154/95
[2018-01-03] MEDS: ATORVASTATIN 80 MG TABLET PO SCH (20:31)
[2018-01-04 01:16] VITALS: BP 146/89
[2018-01-04 06:54] VITALS: BP 143/92
[2018-01-04 10:41] LABS: ANION GAP 7 mmol/L (5-15); CALCIUM 9.7 mg/dL (8.5-10.1); CHLORIDE 98 mmol/L (98-107); CREATININE 0.65 mg/dL (0.55-1.02)
[2018-01-04] MEDS: METOPROLOL TARTRATE 50 MG TABLET PO SCH ×2 (12:11→21:00)
[2018-01-04] MEDS: LISINOPRIL 20 MG TABLET PO SCH (12:11)
[2018-01-04] MEDS: AMLODIPINE 5 MG TABLET PO SCH (12:12)
[2018-01-04 12:40] VITALS: BP 133/88
[2018-01-04 18:59] VITALS: BP 130/89
[2018-01-04] MEDS: ATORVASTATIN 80 MG TABLET PO SCH (21:00)
[2018-01-05 00:59] VITALS: BP 120/71
[2018-01-05 07:11] VITALS: BP 116/85
[2018-01-05] MEDS: METOPROLOL TARTRATE 50 MG TABLET PO SCH ×2 (09:41→20:55)
[2018-01-05] MEDS: AMLODIPINE 5 MG TABLET PO SCH (09:42)
[2018-01-05] MEDS: LISINOPRIL 20 MG TABLET PO SCH (09:42)
[2018-01-05 12:14] VITALS: BP 113/82
[2018-01-05 18:43] VITALS: BP 108/75
[2018-01-05 20:55] VITALS: BP 117/81
[2018-01-05] MEDS: ATORVASTATIN 80 MG TABLET PO SCH (20:55)
[2018-01-06 01:13] VITALS: BP 96/61
[2018-01-06 07:12] VITALS: BP 102/64
[2018-01-06 10:15] VITALS: BP 122/79
[2018-01-06] MEDS: AMLODIPINE 5 MG TABLET PO SCH (10:43)
[2018-01-06] MEDS: LISINOPRIL 20 MG TABLET PO SCH (10:44)
[2018-01-06] MEDS: METOPROLOL TARTRATE 50 MG TABLET PO SCH ×2 (10:44→21:46)
[2018-01-06 12:34] VITALS: BP 99/71
[2018-01-06] MEDS ORDERED: ALBUTEROL SULFATE 2.5 MG/3 ML NPPB PRN (14:30)
[2018-01-06] MEDS: ALBUTEROL SULFATE 2.5 MG/3 ML NPPB SCH (18:42)
[2018-01-06 19:16] VITALS: BP 125/75
[2018-01-06] MEDS: ATORVASTATIN 80 MG TABLET PO SCH (21:46)
[2018-01-07] MEDS: ALBUTEROL SULFATE 2.5 MG/3 ML NPPB SCH ×3 (00:36→15:08)
[2018-01-07 01:08] VITALS: BP 115/77
[2018-01-07 07:02] VITALS: BP 113/79
[2018-01-07] MEDS: AMLODIPINE 5 MG TABLET PO SCH (08:15)
[2018-01-07] MEDS: LISINOPRIL 20 MG TABLET PO SCH (08:15)
[2018-01-07] MEDS: METOPROLOL TARTRATE 50 MG TABLET PO SCH ×2 (08:16→21:08)
[2018-01-07 13:27] VITALS: BP 106/72
[2018-01-07 19:05] VITALS: BP 101/67
[2018-01-07] MEDS: ATORVASTATIN 80 MG TABLET PO SCH (21:08)
[2018-01-08 00:55] VITALS: BP 101/69
[2018-01-08 07:05] VITALS: BP 101/66
[2018-01-08] MEDS: AMLODIPINE 5 MG TABLET PO SCH (09:08)
[2018-01-08] MEDS: METOPROLOL TARTRATE 50 MG TABLET PO SCH ×2 (09:09→21:53)
[2018-01-08] MEDS: LISINOPRIL 20 MG TABLET PO SCH (09:09)
[2018-01-08 13:30] VITALS: BP 100/72
[2018-01-08 19:45] VITALS: BP 107/68
[2018-01-08] MEDS: ATORVASTATIN 80 MG TABLET PO SCH (21:53)
[2018-01-09 00:20] VITALS: BP 108/71
[2018-01-09 07:49] VITALS: BP 103/73
[2018-01-09] MEDS: LISINOPRIL 20 MG TABLET PO SCH (09:10)
[2018-01-09] MEDS: METOPROLOL TARTRATE 50 MG TABLET PO SCH ×2 (09:10→21:00)
[2018-01-09] MEDS: AMLODIPINE 5 MG TABLET PO SCH (09:10)
[2018-01-09 11:30] LABS: MEAN CORPUSCULAR HEMOGLOBIN 27.2 pg (27.0-34.8); MEAN CORPUSCULAR HGB CONC 33.1 g/dL (32.4-35.8); MEAN CORPUSCULAR VOLUME 81.9 fL (80-100); RED BLOOD COUNT 4.96 x10^6/uL (3.82-5.3); RED CELL DISTRIBUTION WIDTH 15.4 % (9.6-15.2)
[2018-01-09 11:45] LABS: THYROID STIMULATING HORMONE 2.61 mIU/L (0.358-3.740)
[2018-01-09 12:09] LABS: BASOPHILS # (AUTO) 0.04 x10^3/uL (0-0.1); BASOPHILS % (AUTO) 1 % (0-1); EOSINOPHILS # (AUTO) 0.02 x10^3/uL (0-0.4); EOSINOPHILS % (AUTO) 0 % (1-7); LYMPHOCYTES # (AUTO) 2.08 x10^3/uL (1-3.4); LYMPHOCYTES % (AUTO) 30 % (22-44); MD MORPH REVIEW ONLY; MEAN PLATELET VOLUME 11.5 fL (7.4-10.4); MONOCYTES # (AUTO) 0.88 x10^3/uL (0.2-0.8); MONOCYTES % (AUTO) 13 % (2-9); NEUTROPHILS # (AUTO) 3.87 x10^3/uL (1.8-6.8); NEUTROPHILS % (AUTO) 56 % (42-75); PLATELET COUNT 184 x10^3/uL (130-400)
[2018-01-09 12:12] LABS: ANISOCYTOSIS 1+; LARGE PLATELETS 1+
[2018-01-09 15:02] VITALS: BP 112/80
[2018-01-09 18:54] VITALS: BP 105/69
[2018-01-09 21:50] VITALS: BP 96/69
[2018-01-09] MEDS: ATORVASTATIN 80 MG TABLET PO SCH (21:51)
[2018-01-10 02:11] VITALS: BP 92/69
[2018-01-10 07:58] VITALS: BP 107/74
[2018-01-10] MEDS: AMLODIPINE 5 MG TABLET PO SCH (09:00)
[2018-01-10] MEDS: LISINOPRIL 20 MG TABLET PO SCH (09:00)
[2018-01-10 11:26] VITALS: BP 97/67
[2018-01-10] MEDS: METOPROLOL TARTRATE 50 MG TABLET PO SCH ×2 (11:28→21:04)
[2018-01-10 14:00] VITALS: BP 115/85
[2018-01-10 20:10] VITALS: BP 119/82
[2018-01-10] MEDS: ATORVASTATIN 80 MG TABLET PO SCH (21:05)
[2018-01-11 02:07] VITALS: BP 123/75
[2018-01-11 06:41] VITALS: BP 115/79
[2018-01-11] MEDS: AMLODIPINE 5 MG TABLET PO SCH (08:58)
[2018-01-11] MEDS: METOPROLOL TARTRATE 50 MG TABLET PO SCH ×2 (08:58→21:32)
[2018-01-11] MEDS: LISINOPRIL 20 MG TABLET PO SCH (08:59)
[2018-01-11 12:46] VITALS: BP 111/66
[2018-01-11 19:18] VITALS: BP 116/78
[2018-01-11] MEDS: ATORVASTATIN 80 MG TABLET PO SCH (21:32)
[2018-01-12 01:41] VITALS: BP 112/77
[2018-01-12 06:48] VITALS: BP 127/80
[2018-01-12] MEDS: AMLODIPINE 5 MG TABLET PO SCH (08:59)
[2018-01-12] MEDS: LISINOPRIL 20 MG TABLET PO SCH (09:00)
[2018-01-12] MEDS: METOPROLOL TARTRATE 50 MG TABLET PO SCH ×2 (09:00→21:38)
[2018-01-12 11:53] LABS: BASOPHILS # (AUTO) 0.04 x10^3/uL (0-0.1); BASOPHILS % (AUTO) 1 % (0-1); EOSINOPHILS # (AUTO) 0.02 x10^3/uL (0-0.4); EOSINOPHILS % (AUTO) 0 % (1-7); LYMPHOCYTES # (AUTO) 1.98 x10^3/uL (1-3.4); LYMPHOCYTES % (AUTO) 28 % (22-44); MD NO; MEAN CORPUSCULAR HEMOGLOBIN 27.8 pg (27.0-34.8); MEAN CORPUSCULAR HGB CONC 33.3 g/dL (32.4-35.8); MEAN CORPUSCULAR VOLUME 83.7 fL (80-100); MEAN PLATELET VOLUME 10.7 fL (7.4-10.4); MONOCYTES # (AUTO) 0.88 x10^3/uL (0.2-0.8); MONOCYTES % (AUTO) 13 % (2-9); NEUTROPHILS # (AUTO) 4.07 x10^3/uL (1.8-6.8); NEUTROPHILS % (AUTO) 58 % (42-75); PLATELET COUNT 191 x10^3/uL (130-400); RED BLOOD COUNT 5.05 x10^6/uL (3.82-5.3); RED CELL DISTRIBUTION WIDTH 14.7 % (9.6-15.2)
[2018-01-12 12:17] VITALS: BP 110/78
[2018-01-12] MEDS ORDERED: GADOBUTROL 7.5 MMOL/7.5 ML PFS ONE (12:49)
[2018-01-12 19:39] VITALS: BP 130/78
[2018-01-12] MEDS: ATORVASTATIN 80 MG TABLET PO SCH (21:38)
[2018-01-13 01:48] VITALS: BP 111/71
[2018-01-13 06:14] LABS: ALANINE AMINOTRANSFERASE 30 U/L (12-78); ALBUMIN 2.7 g/dL (3.4-5.0); ANION GAP 7 mmol/L (5-15); CALCIUM 9.4 mg/dL (8.5-10.1); CHLORIDE 102 mmol/L (98-107); CREATININE 0.63 mg/dL (0.55-1.02)
[2018-01-13 06:16] LABS: ALKALINE PHOSPHATASE 118 U/L (45-117); BILIRUBIN,TOTAL 0.3 mg/dL (0.2-1.0); TOTAL PROTEIN 6.9 g/dL (6.4-8.2)
[2018-01-13 06:30] VITALS: BP 101/71
[2018-01-13] MEDS: METOPROLOL TARTRATE 50 MG TABLET PO SCH ×2 (08:50→21:43)
[2018-01-13] MEDS: LISINOPRIL 20 MG TABLET PO SCH (08:50)
[2018-01-13] MEDS: AMLODIPINE 5 MG TABLET PO SCH (08:50)
[2018-01-13] MEDS: ACETAMINOPHEN 325 MG TABLET PO PRN (08:50)
[2018-01-13 12:51] VITALS: BP 101/68
[2018-01-13 15:39] LABS: CULTURE INDICATED? NO; MICROSCOPIC NOT IND
[2018-01-13 19:10] VITALS: BP 142/92
[2018-01-13] MEDS: ATORVASTATIN 80 MG TABLET PO SCH (21:43)
[2018-01-14 01:48] VITALS: BP 117/79
[2018-01-14 08:45] VITALS: BP 114/76
[2018-01-14] MEDS: LISINOPRIL 20 MG TABLET PO SCH (08:56)
[2018-01-14] MEDS: AMLODIPINE 5 MG TABLET PO SCH (08:57)
[2018-01-14] MEDS: METOPROLOL TARTRATE 50 MG TABLET PO SCH ×2 (08:57→21:57)
[2018-01-14 14:09] VITALS: BP 111/75
[2018-01-14 20:00] VITALS: BP 112/75
[2018-01-14] MEDS: ATORVASTATIN 80 MG TABLET PO SCH (21:57)
[2018-01-15 00:50] VITALS: BP 106/73
[2018-01-15 07:14] VITALS: BP 97/65
[2018-01-15] MEDS: AMLODIPINE 5 MG TABLET PO SCH (11:08)
[2018-01-15] MEDS: METOPROLOL TARTRATE 50 MG TABLET PO SCH ×2 (11:08→20:28)
[2018-01-15] MEDS: LISINOPRIL 20 MG TABLET PO SCH (11:08)
[2018-01-15 14:10] VITALS: BP_SYST 89; BP_SYST 95; BP_DIAS 57; BP_DIAS 65
[2018-01-15 18:58] VITALS: BP 104/75
[2018-01-15] MEDS: ATORVASTATIN 80 MG TABLET PO SCH (20:29)
[2018-01-16 02:14] VITALS: BP 131/76
[2018-01-16 07:50] VITALS: BP 114/75
[2018-01-16] MEDS: METOPROLOL TARTRATE 50 MG TABLET PO SCH (08:43)
[2018-01-16] MEDS: AMLODIPINE 5 MG TABLET PO SCH (08:43)
[2018-01-16] MEDS: LISINOPRIL 20 MG TABLET PO SCH (08:44)
[2018-01-16 13:47] VITALS: BP 114/77
[2018-01-16 20:13] VITALS: BP 123/84
[2018-01-16] MEDS: ATORVASTATIN 80 MG TABLET PO SCH (22:40)
[2018-01-16] MEDS: METOPROLOL TARTRATE 25 MG TABLET PO SCH (22:40)
[2018-01-17 03:14] VITALS: BP 123/86
[2018-01-17 07:01] VITALS: BP 122/83
[2018-01-17] MEDS: METOPROLOL TARTRATE 25 MG TABLET PO SCH ×2 (09:23→21:58)
[2018-01-17] MEDS: AMLODIPINE 5 MG TABLET PO SCH (09:23)
[2018-01-17] MEDS: LISINOPRIL 20 MG TABLET PO SCH (09:24)
[2018-01-17 13:55] VITALS: BP 105/70
[2018-01-17 19:37] VITALS: BP 123/82
[2018-01-17] MEDS: ATORVASTATIN 80 MG TABLET PO SCH (21:58)
[2018-01-18 01:25] VITALS: BP 113/76
[2018-01-18 06:48] VITALS: BP 119/86
[2018-01-18] MEDS ORDERED: DOCUSATE 50 MG/5 ML, 10ML UDC ONE (08:23)
[2018-01-18] MEDS ORDERED: DOCUSATE 50 MG/5 ML, 10ML UDC PO PRN (08:30)
[2018-01-18] MEDS: AMLODIPINE 5 MG TABLET PO SCH (08:38)
[2018-01-18] MEDS: LISINOPRIL 20 MG TABLET PO SCH (08:38)
[2018-01-18] MEDS: METOPROLOL TARTRATE 25 MG TABLET PO SCH ×2 (08:39→21:18)
[2018-01-18 12:29] VITALS: BP 113/78
[2018-01-18 18:42] VITALS: BP 100/70
[2018-01-18] MEDS: ATORVASTATIN 80 MG TABLET PO SCH (21:17)
[2018-01-19 01:30] VITALS: BP 126/83
[2018-01-19 06:55] VITALS: BP 122/79
[2018-01-19] MEDS: AMLODIPINE 5 MG TABLET PO SCH (09:10)
[2018-01-19] MEDS: METOPROLOL TARTRATE 25 MG TABLET PO SCH ×2 (09:10→20:54)
[2018-01-19] MEDS: LISINOPRIL 20 MG TABLET PO SCH (09:10)
[2018-01-19 12:49] VITALS: BP 91/61
[2018-01-19 18:41] VITALS: BP 102/71
[2018-01-19] MEDS: ATORVASTATIN 80 MG TABLET PO SCH (20:53)
[2018-01-20] VITALS (7 sets, daily range): BP systolic 93–109; BP diastolic 62–77
[2018-01-20] MEDS: ATORVASTATIN 80 MG TABLET PO SCH (21:31)
[2018-01-20] MEDS: METOPROLOL TARTRATE 25 MG TABLET PO SCH (21:31)
[2018-01-21 01:46] VITALS: BP 108/63
[2018-01-21 07:16] VITALS: BP 110/68
[2018-01-21] MEDS: AMLODIPINE 10 MG TAB PO SCH (07:38)
[2018-01-21] MEDS: LISINOPRIL 20 MG TABLET PO SCH (07:39)
[2018-01-21] MEDS: METOPROLOL TARTRATE 25 MG TABLET PO SCH ×2 (07:39→20:30)
[2018-01-21 12:47] VITALS: BP 90/59
[2018-01-21 19:57] VITALS: BP 105/66
[2018-01-21] MEDS: ATORVASTATIN 80 MG TABLET PO SCH (20:31)
[2018-01-22 00:17] VITALS: BP 103/74
[2018-01-22 07:57] VITALS: BP 98/60
[2018-01-22] MEDS: METOPROLOL TARTRATE 25 MG TABLET PO SCH ×2 (09:00→20:17)
[2018-01-22] MEDS: LISINOPRIL 20 MG TABLET PO SCH (09:00)
[2018-01-22] MEDS: AMLODIPINE 10 MG TAB PO SCH (09:00)
[2018-01-22 09:05] VITALS: BP 100/68
[2018-01-22 14:00] VITALS: BP 96/64
[2018-01-22 19:19] VITALS: BP 105/73
[2018-01-22] MEDS: ATORVASTATIN 80 MG TABLET PO SCH (20:17)
[2018-01-23 00:04] VITALS: BP 107/72
[2018-01-23 07:35] VITALS: BP 102/69
[2018-01-23] MEDS: AMLODIPINE 10 MG TAB PO SCH (10:37)
[2018-01-23] MEDS: LISINOPRIL 20 MG TABLET PO SCH (10:40)
[2018-01-23] MEDS: METOPROLOL TARTRATE 25 MG TABLET PO SCH ×2 (10:40→20:38)
[2018-01-23 13:57] VITALS: BP 94/63
[2018-01-23 18:18] VITALS: BP 112/72
[2018-01-23] MEDS: ATORVASTATIN 80 MG TABLET PO SCH (20:37)
[2018-01-24 00:05] VITALS: BP 112/71
[2018-01-24 07:20] VITALS: BP 127/90
[2018-01-24] MEDS: LISINOPRIL 20 MG TABLET PO SCH (08:34)
[2018-01-24] MEDS: AMLODIPINE 10 MG TAB PO SCH (08:34)
[2018-01-24] MEDS: METOPROLOL TARTRATE 25 MG TABLET PO SCH ×2 (08:35→21:00)
[2018-01-24 13:35] VITALS: BP 101/68
[2018-01-24 20:00] VITALS: BP 112/74
[2018-01-24] MEDS: ATORVASTATIN 80 MG TABLET PO SCH (21:00)
[2018-01-24] MEDS ORDERED: DOCUSATE 50 MG/5 ML, 10ML UDC GT PRN (21:30)
[2018-01-24] MEDS ORDERED: POLYETHYLENE GLYCOL 17 GM PACKET GT PRN (21:30)
[2018-01-24] MEDS: ATORVASTATIN 80 MG TABLET GT SCH (21:42)
[2018-01-24] MEDS: METOPROLOL TARTRATE 25 MG TABLET GT SCH (21:42)
[2018-01-25 02:00] VITALS: BP 117/83
[2018-01-25 07:04] VITALS: BP 122/82
[2018-01-25] MEDS ORDERED: AMLODIPINE 10 MG TAB GT SCH (09:00)
[2018-01-25] MEDS: LISINOPRIL 20 MG TABLET GT SCH (10:33)
[2018-01-25] MEDS: METOPROLOL TARTRATE 25 MG TABLET GT SCH ×2 (10:33→21:18)
[2018-01-25 12:09] VITALS: BP 92/67
[2018-01-25 20:00] VITALS: BP 114/73
[2018-01-25] MEDS: ATORVASTATIN 80 MG TABLET GT SCH (21:18)
[2018-01-26 01:21] VITALS: BP 106/74
[2018-01-26 07:05] VITALS: BP 107/76
[2018-01-26 08:27] LABS: BASOPHILS # (AUTO) 0.04 x10^3/uL (0-0.1); BASOPHILS % (AUTO) 1 % (0-1); EOSINOPHILS # (AUTO) 0.04 x10^3/uL (0-0.4); EOSINOPHILS % (AUTO) 1 % (1-7); LYMPHOCYTES # (AUTO) 1.98 x10^3/uL (1-3.4); LYMPHOCYTES % (AUTO) 32 % (22-44); MD NO; MEAN CORPUSCULAR HEMOGLOBIN 27.5 pg (27.0-34.8); MEAN CORPUSCULAR HGB CONC 33.1 g/dL (32.4-35.8); MONOCYTES # (AUTO) 0.78 x10^3/uL (0.2-0.8); MONOCYTES % (AUTO) 12 % (2-9); NEUTROPHILS # (AUTO) 3.42 x10^3/uL (1.8-6.8); NEUTROPHILS % (AUTO) 55 % (42-75); PLATELET COUNT 237 x10^3/uL (130-400); RED BLOOD COUNT 4.83 x10^6/uL (3.82-5.3); RED CELL DISTRIBUTION WIDTH 16.1 % (9.6-15.2)
[2018-01-26 08:39] LABS: ALANINE AMINOTRANSFERASE 30 U/L (12-78); ALBUMIN 2.7 g/dL (3.4-5.0); ANION GAP 7 mmol/L (5-15); CALCIUM 8.9 mg/dL (8.5-10.1); CHLORIDE 106 mmol/L (98-107); CREATININE 0.54 mg/dL (0.55-1.02)
[2018-01-26 08:41] LABS: ALKALINE PHOSPHATASE 116 U/L (45-117); BILIRUBIN,TOTAL 0.3 mg/dL (0.2-1.0); TOTAL PROTEIN 7.1 g/dL (6.4-8.2)
[2018-01-26] MEDS ORDERED: AMLODIPINE 10 MG TAB GT SCH (09:00)
[2018-01-26] MEDS: LISINOPRIL 20 MG TABLET GT SCH (09:18)
[2018-01-26] MEDS: METOPROLOL TARTRATE 25 MG TABLET GT SCH ×2 (09:19→21:16)
[2018-01-26 12:55] VITALS: BP 108/75
[2018-01-26 19:28] VITALS: BP 101/65
[2018-01-26] MEDS: ATORVASTATIN 80 MG TABLET GT SCH (21:16)
[2018-01-27 02:00] VITALS: BP 117/68
[2018-01-27 06:55] VITALS: BP 100/72
[2018-01-27 08:27] VITALS: BP 93/65
[2018-01-27] MEDS: METOPROLOL TARTRATE 25 MG TABLET GT SCH ×2 (08:28→19:40)
[2018-01-27] MEDS: LISINOPRIL 20 MG TABLET GT SCH (08:28)
[2018-01-27 13:08] VITALS: BP 103/67
[2018-01-27 19:39] VITALS: BP 117/75
[2018-01-27] MEDS: ATORVASTATIN 80 MG TABLET GT SCH (19:39)
[2018-01-28 01:02] VITALS: BP 99/66
[2018-01-28 07:09] VITALS: BP 100/69
[2018-01-28] MEDS: METOPROLOL TARTRATE 25 MG TABLET GT SCH ×2 (08:40→23:20)
[2018-01-28] MEDS ORDERED: LISINOPRIL 10 MG TABLET GT SCH (09:00)
[2018-01-28 13:23] VITALS: BP 126/88
--- NOTE | 2018-01-28 16:09 | NUR ---
PUREE/THIN; swallow precautions sign posted at bedside Addendum: 01/28/18 at [address] Amended: Links added.
[2018-01-28 19:30] VITALS: BP 99/77
[2018-01-28] MEDS: ATORVASTATIN 80 MG TABLET GT SCH (23:19)
[2018-01-29 00:42] VITALS: BP 101/70
[2018-01-29 07:15] VITALS: BP 118/70
[2018-01-29] MEDS: METOPROLOL TARTRATE 25 MG TABLET GT SCH ×2 (08:24→20:37)
[2018-01-29] MEDS ORDERED: LISINOPRIL 5 MG TABLET GT SCH (09:00)
[2018-01-29 14:00] VITALS: BP 103/70
[2018-01-29 19:48] VITALS: BP 106/77
[2018-01-29] MEDS: ATORVASTATIN 80 MG TABLET GT SCH (20:37)
[2018-01-30 00:56] VITALS: BP 105/72
[2018-01-30 07:00] VITALS: BP 112/70
[2018-01-30] MEDS: METOPROLOL TARTRATE 25 MG TABLET GT SCH ×2 (10:10→20:32)
[2018-01-30 14:00] VITALS: BP 107/68
[2018-01-30 19:58] VITALS: BP 110/73
[2018-01-30] MEDS: ATORVASTATIN 80 MG TABLET GT SCH (20:32)
[2018-01-31 01:45] VITALS: BP 114/74
[2018-01-31 07:39] VITALS: BP 121/87
[2018-01-31] MEDS: METOPROLOL TARTRATE 25 MG TABLET GT SCH ×2 (10:04→21:09)
[2018-01-31 13:35] VITALS: BP 116/79
[2018-01-31 18:53] VITALS: BP 116/82
[2018-01-31] MEDS: ATORVASTATIN 80 MG TABLET GT SCH (21:09)
[2018-02-01 01:35] VITALS: BP 120/83
[2018-02-01 06:36] VITALS: BP 117/81
[2018-02-01] MEDS: METOPROLOL TARTRATE 25 MG TABLET GT SCH ×2 (09:06→20:14)
[2018-02-01 12:08] VITALS: BP 111/79
--- NOTE | 2018-02-01 14:12 | NUR ---
REC: Pureed diet with NTL with 1:1 assistance/supervision for all meals Addendum: 02/01/18 at 1413 by Camilla URIAS Amended: Links added.
[2018-02-01 18:36] VITALS: BP 109/77
[2018-02-01] MEDS: ATORVASTATIN 80 MG TABLET GT SCH (20:14)
[2018-02-02 01:43] VITALS: BP 120/79
[2018-02-02 06:28] VITALS: BP 117/82
[2018-02-02] MEDS: METOPROLOL TARTRATE 25 MG TABLET GT SCH ×2 (09:02→20:31)
[2018-02-02 12:17] VITALS: BP 114/78
[2018-02-02 18:52] VITALS: BP 106/74
[2018-02-02] MEDS: ATORVASTATIN 80 MG TABLET GT SCH (20:31)
[2018-02-03 01:56] VITALS: BP 134/91
[2018-02-03 06:50] VITALS: BP 97/65
--- NOTE | 2018-02-03 08:46 | NUR ---
Green activity sheet posted in room. To help guide staff interventions. Chair position 2-3x/day. R hand ROM 2-3x/day. R UE positioning on pillow with slight ER 2-3x/day. Addendum: 02/04/18 at 0847 by GRANT ALVAREZ PT Amended: Links added.
[2018-02-03 09:24] VITALS: BP 110/74
[2018-02-03] MEDS: METOPROLOL TARTRATE 25 MG TABLET GT SCH ×2 (09:33→21:37)
[2018-02-03 12:24] VITALS: BP 102/75
[2018-02-03 16:20] VITALS: BP 102/68
[2018-02-03] MEDS: ACETAMINOPHEN 325 MG TABLET GT PRN (16:36)
[2018-02-03 21:18] VITALS: BP 115/80
[2018-02-03] MEDS: ATORVASTATIN 80 MG TABLET GT SCH (21:37)
[2018-02-04 01:35] VITALS: BP 116/81
[2018-02-04 05:27] LABS: ALBUMIN 2.5 g/dL (3.4-5.0); ANION GAP 9 mmol/L (5-15); CALCIUM 8.9 mg/dL (8.5-10.1); CHLORIDE 105 mmol/L (98-107)
[2018-02-04 05:30] LABS: ALANINE AMINOTRANSFERASE 22 U/L (12-78); ALKALINE PHOSPHATASE 98 U/L (45-117); BILIRUBIN,TOTAL 0.3 mg/dL (0.2-1.0); CREATININE 0.56 mg/dL (0.55-1.02); TOTAL PROTEIN 6.5 g/dL (6.4-8.2)
[2018-02-04 05:49] LABS: BASOPHILS # (AUTO) 0.04 x10^3/uL (0-0.1); BASOPHILS % (AUTO) 1 % (0-1); EOSINOPHILS # (AUTO) 0.05 x10^3/uL (0-0.4); EOSINOPHILS % (AUTO) 1 % (1-7); LYMPHOCYTES % (AUTO) 45 % (22-44); MD SCAN; MEAN CORPUSCULAR HGB CONC 33.5 g/dL (32.4-35.8); MEAN CORPUSCULAR VOLUME 83.5 fL (80-100); MEAN PLATELET VOLUME 11.8 fL (7.4-10.4); MONOCYTES # (AUTO) 0.73 x10^3/uL (0.2-0.8); MONOCYTES % (AUTO) 12 % (2-9); NEUTROPHILS # (AUTO) 2.68 x10^3/uL (1.8-6.8); NEUTROPHILS % (AUTO) 43 % (42-75); PLATELET COUNT 179 x10^3/uL (130-400); RED CELL DISTRIBUTION WIDTH 16.3 % (9.6-15.2)
[2018-02-04 09:40] VITALS: BP 117/76
[2018-02-04] MEDS: METOPROLOL TARTRATE 25 MG TABLET GT SCH ×2 (09:42→20:01)
[2018-02-04 15:30] VITALS: BP 108/69
[2018-02-04 19:50] VITALS: BP 113/76
[2018-02-04] MEDS: ATORVASTATIN 80 MG TABLET GT SCH (20:00)
[2018-02-05 00:23] VITALS: BP 108/74
[2018-02-05 07:15] VITALS: BP 114/84
[2018-02-05] MEDS: METOPROLOL TARTRATE 25 MG TABLET GT SCH ×2 (11:33→22:15)
[2018-02-05] MEDS: ACETAMINOPHEN 325 MG TABLET GT PRN ×2 (11:33→22:14)
[2018-02-05 15:22] VITALS: BP 114/75
[2018-02-05 19:22] VITALS: BP 118/81
[2018-02-05] MEDS: ATORVASTATIN 80 MG TABLET GT SCH (22:15)
[2018-02-06 00:52] VITALS: BP 100/49
[2018-02-06 07:20] VITALS: BP 111/63
[2018-02-06] MEDS: METOPROLOL TARTRATE 25 MG TABLET GT SCH ×2 (09:54→21:08)
[2018-02-06 14:00] VITALS: BP 104/68
[2018-02-06 20:17] VITALS: BP 133/81
[2018-02-06] MEDS: ATORVASTATIN 80 MG TABLET GT SCH (21:07)
[2018-02-06] MEDS: ACETAMINOPHEN 325 MG TABLET GT PRN (21:08)
[2018-02-06 21:38] LABS: MICROSCOPIC INDICATED
[2018-02-06 21:45] LABS: CULTURE INDICATED? NO
[2018-02-07 00:58] VITALS: BP 124/80
[2018-02-07 05:35] LABS: BASOPHILS # (AUTO) 0.04 x10^3/uL (0-0.1); BASOPHILS % (AUTO) 1 % (0-1); EOSINOPHILS # (AUTO) 0.14 x10^3/uL (0-0.4); EOSINOPHILS % (AUTO) 2 % (1-7); LYMPHOCYTES # (AUTO) 2.78 x10^3/uL (1-3.4); LYMPHOCYTES % (AUTO) 42 % (22-44); MD NO; MEAN CORPUSCULAR HEMOGLOBIN 27.4 pg (27.0-34.8); MEAN CORPUSCULAR HGB CONC 32.6 g/dL (32.4-35.8); MEAN CORPUSCULAR VOLUME 83.9 fL (80-100); MEAN PLATELET VOLUME 9.9 fL (7.4-10.4); MONOCYTES # (AUTO) 0.78 x10^3/uL (0.2-0.8); MONOCYTES % (AUTO) 12 % (2-9); NEUTROPHILS # (AUTO) 2.81 x10^3/uL (1.8-6.8); NEUTROPHILS % (AUTO) 43 % (42-75); PLATELET COUNT 194 x10^3/uL (130-400); RED BLOOD COUNT 4.73 x10^6/uL (3.82-5.3); RED CELL DISTRIBUTION WIDTH 16.3 % (9.6-15.2)
[2018-02-07 05:48] LABS: ALBUMIN 2.7 g/dL (3.4-5.0); ANION GAP 8 mmol/L (5-15); CALCIUM 9.5 mg/dL (8.5-10.1); CHLORIDE 105 mmol/L (98-107)
[2018-02-07 05:52] LABS: ALANINE AMINOTRANSFERASE 23 U/L (12-78); ALKALINE PHOSPHATASE 98 U/L (45-117); BILIRUBIN,TOTAL 0.3 mg/dL (0.2-1.0); CREATININE 0.64 mg/dL (0.55-1.02); TOTAL PROTEIN 6.8 g/dL (6.4-8.2)
[2018-02-07 07:35] VITALS: BP 137/90
[2018-02-07] MEDS: METOPROLOL TARTRATE 25 MG TABLET GT SCH ×2 (08:22→20:26)
[2018-02-07] MEDS: ACETAMINOPHEN 325 MG TABLET GT PRN (11:22)
[2018-02-07 14:00] VITALS: BP 98/64
[2018-02-07 20:00] VITALS: BP 115/72
[2018-02-07] MEDS: ATORVASTATIN 80 MG TABLET GT SCH (20:26)
[2018-02-08 00:33] VITALS: BP 120/79
[2018-02-08 07:05] VITALS: BP 132/90
[2018-02-08] MEDS: METOPROLOL TARTRATE 25 MG TABLET GT SCH ×2 (11:25→20:01)
[2018-02-08 12:36] VITALS: BP 109/72
[2018-02-08 19:22] VITALS: BP 114/71
[2018-02-08] MEDS: ATORVASTATIN 80 MG TABLET GT SCH (20:01)
[2018-02-09 02:00] VITALS: BP 130/86
[2018-02-09 04:23] VITALS: BP 130/86
[2018-02-09 07:03] VITALS: BP 112/87
[2018-02-09] MEDS: METOPROLOL TARTRATE 25 MG TABLET GT SCH ×2 (08:07→21:55)
[2018-02-09 12:02] VITALS: BP 128/84
[2018-02-09 20:37] VITALS: BP 114/79
[2018-02-09] MEDS: ACETAMINOPHEN 325 MG TABLET GT PRN (21:55)
[2018-02-09] MEDS: ATORVASTATIN 80 MG TABLET GT SCH (21:55)
[2018-02-10 01:30] VITALS: BP 111/76
[2018-02-10 07:25] VITALS: BP 122/83
[2018-02-10] MEDS: METOPROLOL TARTRATE 25 MG TABLET GT SCH ×2 (08:19→21:21)
[2018-02-10 13:05] VITALS: BP 100/70
[2018-02-10] MEDS ORDERED: LACTULOSE 3.3 GM/5 ML ORAL.SOL RC ONE ×3 (18:00→21:30)
[2018-02-10 19:22] VITALS: BP 113/70
[2018-02-10] MEDS: ATORVASTATIN 80 MG TABLET GT SCH (21:20)
[2018-02-11 00:23] VITALS: BP 111/75
[2018-02-11 07:40] VITALS: BP 116/79
[2018-02-11] MEDS: METOPROLOL TARTRATE 25 MG TABLET GT SCH ×2 (10:19→20:48)
[2018-02-11] MEDS: POLYETHYLENE GLYCOL 17 GM PACKET GT SCH (10:19)
[2018-02-11 14:30] VITALS: BP 138/72
[2018-02-11 20:02] VITALS: BP 123/86
[2018-02-11] MEDS: ATORVASTATIN 80 MG TABLET GT SCH (20:48)
[2018-02-12 01:28] VITALS: BP 110/70
[2018-02-12 08:00] VITALS: BP 124/78
[2018-02-12] MEDS: POLYETHYLENE GLYCOL 17 GM PACKET GT SCH (08:27)
[2018-02-12] MEDS: METOPROLOL TARTRATE 25 MG TABLET GT SCH ×2 (08:27→22:20)
--- NOTE | 2018-02-12 10:29 | NUR ---
RECOMMEND: GROUND DIET WITH THIN LIQUIDS Addendum: 02/12/18 at 1030 by Camilla URIAS Amended: Links added.
[2018-02-12 12:56] VITALS: BP 109/74
[2018-02-12 19:59] VITALS: BP 153/84
[2018-02-12] MEDS: ATORVASTATIN 80 MG TABLET GT SCH (22:19)
[2018-02-13 00:46] VITALS: BP 116/72
[2018-02-13 08:00] VITALS: BP 106/72
[2018-02-13] MEDS: POLYETHYLENE GLYCOL 17 GM PACKET GT SCH (09:00)
[2018-02-13] MEDS: METOPROLOL TARTRATE 25 MG TABLET GT SCH ×2 (10:19→21:52)
[2018-02-13 13:16] VITALS: BP 108/67
[2018-02-13 19:01] VITALS: BP 110/77
[2018-02-13] MEDS: ATORVASTATIN 80 MG TABLET GT SCH (21:51)
[2018-02-14 01:02] VITALS: BP 105/59
[2018-02-14 07:35] VITALS: BP 126/71
[2018-02-14] MEDS: METOPROLOL TARTRATE 25 MG TABLET GT SCH ×2 (08:45→21:12)
[2018-02-14] MEDS: POLYETHYLENE GLYCOL 17 GM PACKET GT SCH (08:45)
--- NOTE | 2018-02-14 13:37 | NUR ---
REC: Pureed diet with NTL with 1:1 assistance Addendum: 02/14/18 at [address] Amended: Links added. Addendum: 02/14/18 at 1346 by Camilla URIAS Amended: Links added.
[2018-02-14 14:00] VITALS: BP 106/74
[2018-02-14 19:39] VITALS: BP 114/83
[2018-02-14] MEDS: ATORVASTATIN 80 MG TABLET GT SCH (21:12)
[2018-02-15 02:27] VITALS: BP 123/84
[2018-02-15 06:42] VITALS: BP 136/92
[2018-02-15] MEDS: METOPROLOL TARTRATE 25 MG TABLET GT SCH ×2 (08:27→20:51)
[2018-02-15] MEDS: POLYETHYLENE GLYCOL 17 GM PACKET GT SCH (08:27)
[2018-02-15 12:18] VITALS: BP 118/79
[2018-02-15 20:07] VITALS: BP 147/99
[2018-02-15] MEDS: ATORVASTATIN 80 MG TABLET GT SCH (20:50)
[2018-02-15] MEDS: ACETAMINOPHEN 325 MG TABLET GT PRN (20:51)
[2018-02-15 22:00] VITALS: BP 121/78
[2018-02-15 22:02] LABS: BASOPHILS # (AUTO) 0.02 x10^3/uL (0-0.1); BASOPHILS % (AUTO) 0 % (0-1); EOSINOPHILS % (AUTO) 0 % (1-7); LYMPHOCYTES # (AUTO) 0.63 x10^3/uL (1-3.4); LYMPHOCYTES % (AUTO) 9 % (22-44); MD NO; MEAN CORPUSCULAR HGB CONC 33.7 g/dL (32.4-35.8); MEAN CORPUSCULAR VOLUME 83.2 fL (80-100); MEAN PLATELET VOLUME 11.2 fL (7.4-10.4); MONOCYTES # (AUTO) 0.89 x10^3/uL (0.2-0.8); MONOCYTES % (AUTO) 13 % (2-9); NEUTROPHILS # (AUTO) 5.24 x10^3/uL (1.8-6.8); NEUTROPHILS % (AUTO) 77 % (42-75); PLATELET COUNT 208 x10^3/uL (130-400); RED CELL DISTRIBUTION WIDTH 16.8 % (9.6-15.2)
[2018-02-15 22:13] LABS: ANION GAP 12 mmol/L (5-15); CALCIUM 9.1 mg/dL (8.5-10.1); CHLORIDE 106 mmol/L (98-107); CREATININE 0.78 mg/dL (0.55-1.02)
[2018-02-15 22:59] LABS: INTERNATIONAL NORMALIZED RATIO 1.08 (0.93-1.1); PROTHROMBIN TIME 11.2 Seconds (9.6-11.5)
[2018-02-15] MEDS: PIPERACILLIN/TAZO/PMX 4.5GM 100 ML IV SCH (23:42)
[2018-02-16 01:28] VITALS: BP 123/77
[2018-02-16] MEDS: PIPERACILLIN/TAZO/PMX 4.5GM 100 ML IV SCH ×4 (05:38→23:21)
[2018-02-16 06:08] LABS: ALBUMIN 2.6 g/dL (3.4-5.0); ANION GAP 10 mmol/L (5-15); CHLORIDE 107 mmol/L (98-107)
[2018-02-16 06:10] LABS: CREATININE 0.68 mg/dL (0.55-1.02)
[2018-02-16 06:20] LABS: MEAN CORPUSCULAR HEMOGLOBIN 28.3 pg (27.0-34.8); MEAN CORPUSCULAR VOLUME 83.2 fL (80-100); MEAN PLATELET VOLUME 12.9 fL (7.4-10.4); PLATELET COUNT 179 x10^3/uL (130-400); RED BLOOD COUNT 4.69 x10^6/uL (3.82-5.3); RED CELL DISTRIBUTION WIDTH 16.7 % (9.6-15.2)
[2018-02-16 06:23] LABS: MD YES
[2018-02-16 06:25] LABS: BASOPHILS # (AUTO) 0.01 x10^3/uL (0-0.1); BASOPHILS % (AUTO) 0 % (0-1); EOSINOPHILS % (AUTO) 0 % (1-7); LYMPHOCYTES # (AUTO) 1.38 x10^3/uL (1-3.4); LYMPHOCYTES % (AUTO) 13 % (22-44); MONOCYTES # (AUTO) 1.39 x10^3/uL (0.2-0.8); MONOCYTES % (AUTO) 14 % (2-9); NEUTROPHILS # (AUTO) 7.57 x10^3/uL (1.8-6.8); NEUTROPHILS % (AUTO) 73 % (42-75)
[2018-02-16 06:28] LABS: <PLATELET ESTIMATE> ADEQUATE; ANISOCYTOSIS 1+; BAND#(MANUAL) 0.74 x10^3/uL; BANDS%(MANUAL) 7 % (0-7); LYMPH#(MANUAL) 1.17 x10^3/uL (1-3.4); LYMPHS% (MANUAL) 11 % (22-44); MONOS#(MANUAL) 1.27 x10^3/uL (0.3-2.7); MONOS% (MANUAL) 12 % (2-9); SEG#(MANUAL) 7.42 x10^3/uL (1.8-6.8); SEGS% (MANUAL) 70 % (42-75)
[2018-02-16 06:29] LABS: LARGE PLATELETS 1+
[2018-02-16 06:48] VITALS: BP 107/72
[2018-02-16] MEDS: METOPROLOL TARTRATE 25 MG TABLET GT SCH ×2 (09:28→20:58)
[2018-02-16] MEDS: POLYETHYLENE GLYCOL 17 GM PACKET GT SCH (09:28)
[2018-02-16 12:29] VITALS: BP 99/63
[2018-02-16 20:03] VITALS: BP 99/64
[2018-02-16 20:57] VITALS: BP 105/72
[2018-02-16] MEDS: ATORVASTATIN 80 MG TABLET GT SCH (20:58)
[2018-02-17 02:36] VITALS: BP 104/66
[2018-02-17] MEDS: PIPERACILLIN/TAZO/PMX 4.5GM 100 ML IV SCH ×4 (05:40→23:06)
[2018-02-17 07:01] VITALS: BP 97/64
[2018-02-17] MEDS: POLYETHYLENE GLYCOL 17 GM PACKET GT SCH (08:00)
[2018-02-17] MEDS: METOPROLOL TARTRATE 25 MG TABLET GT SCH ×2 (08:00→22:18)
[2018-02-17 12:34] VITALS: BP 92/58
[2018-02-17 19:34] VITALS: BP 111/75
[2018-02-17] MEDS: ATORVASTATIN 80 MG TABLET GT SCH (22:18)
[2018-02-18 02:32] VITALS: BP 125/83
[2018-02-18] MEDS: PIPERACILLIN/TAZO/PMX 4.5GM 100 ML IV SCH ×4 (05:28→23:42)
[2018-02-18 07:25] VITALS: BP 105/69
[2018-02-18 09:02] VITALS: BP 121/70
[2018-02-18] MEDS: POLYETHYLENE GLYCOL 17 GM PACKET GT SCH (09:14)
[2018-02-18] MEDS: METOPROLOL TARTRATE 25 MG TABLET GT SCH ×2 (09:14→21:15)
[2018-02-18 14:10] VITALS: BP 96/59
[2018-02-18 19:06] VITALS: BP 99/66
[2018-02-18 21:14] VITALS: BP 119/80
[2018-02-18] MEDS: ATORVASTATIN 80 MG TABLET GT SCH (21:14)
[2018-02-19 02:34] VITALS: BP 94/67
[2018-02-19 05:37] LABS: ALBUMIN 2.1 g/dL (3.4-5.0); ANION GAP 8 mmol/L (5-15); CALCIUM 9.3 mg/dL (8.5-10.1); CHLORIDE 104 mmol/L (98-107)
[2018-02-19] MEDS: PIPERACILLIN/TAZO/PMX 4.5GM 100 ML IV SCH ×3 (05:40→17:24)
[2018-02-19 06:00] LABS: MEAN CORPUSCULAR HEMOGLOBIN 27.5 pg (27.0-34.8); MEAN CORPUSCULAR HGB CONC 33.1 g/dL (32.4-35.8); MEAN CORPUSCULAR VOLUME 83.2 fL (80-100); RED BLOOD COUNT 4.22 x10^6/uL (3.82-5.3); RED CELL DISTRIBUTION WIDTH 16.4 % (9.6-15.2)
[2018-02-19 06:04] LABS: BASOPHILS # (AUTO) 0.01 x10^3/uL (0-0.1); BASOPHILS % (AUTO) 0 % (0-1); EOSINOPHILS # (AUTO) 0.08 x10^3/uL (0-0.4); EOSINOPHILS % (AUTO) 1 % (1-7); LYMPHOCYTES # (AUTO) 2.24 x10^3/uL (1-3.4); LYMPHOCYTES % (AUTO) 24 % (22-44); MD SCAN; MEAN PLATELET VOLUME 12.8 fL (7.4-10.4); MONOCYTES # (AUTO) 0.96 x10^3/uL (0.2-0.8); MONOCYTES % (AUTO) 11 % (2-9); NEUTROPHILS % (AUTO) 64 % (42-75); PLATELET COUNT 167 x10^3/uL (130-400)
[2018-02-19 06:50] VITALS: BP 99/74
[2018-02-19] MEDS ORDERED: POTASSIUM CHLORIDE 20 MEQ TAB.ER.PRT PO ONE (07:00)
[2018-02-19] MEDS: METOPROLOL TARTRATE 25 MG TABLET GT SCH ×2 (08:25→21:00)
[2018-02-19 08:26] VITALS: BP 108/73
[2018-02-19] MEDS: POLYETHYLENE GLYCOL 17 GM PACKET GT SCH (08:27)
[2018-02-19 13:21] VITALS: BP 101/74
[2018-02-19 20:21] VITALS: BP 93/56
[2018-02-19] MEDS: ATORVASTATIN 80 MG TABLET GT SCH (21:53)
[2018-02-20] MEDS: PIPERACILLIN/TAZO/PMX 4.5GM 100 ML IV SCH ×5 (00:04→23:41)
[2018-02-20 03:02] VITALS: BP 102/68
[2018-02-20 04:47] LABS: ANION GAP 8 mmol/L (5-15); CALCIUM 8.5 mg/dL (8.5-10.1); CHLORIDE 105 mmol/L (98-107); CREATININE 0.45 mg/dL (0.55-1.02)
[2018-02-20 05:57] LABS: BASOPHILS # (AUTO) 0.03 x10^3/uL (0-0.1); BASOPHILS % (AUTO) 0 % (0-1); EOSINOPHILS % (AUTO) 3 % (1-7); LYMPHOCYTES # (AUTO) 1.94 x10^3/uL (1-3.4); LYMPHOCYTES % (AUTO) 27 % (22-44); MD SCAN; MEAN CORPUSCULAR HEMOGLOBIN 27.6 pg (27.0-34.8); MEAN CORPUSCULAR VOLUME 83.7 fL (80-100); MEAN PLATELET VOLUME 11.7 fL (7.4-10.4); MONOCYTES # (AUTO) 0.78 x10^3/uL (0.2-0.8); MONOCYTES % (AUTO) 11 % (2-9); NEUTROPHILS # (AUTO) 4.25 x10^3/uL (1.8-6.8); NEUTROPHILS % (AUTO) 59 % (42-75); PLATELET COUNT 187 x10^3/uL (130-400); RED BLOOD COUNT 4.03 x10^6/uL (3.82-5.3); RED CELL DISTRIBUTION WIDTH 16.6 % (9.6-15.2)
[2018-02-20 06:31] VITALS: BP 125/69
[2018-02-20] MEDS ORDERED: POTASSIUM CHLORIDE 20 MEQ TAB.ER.PRT PO ONE (07:30)
[2018-02-20] MEDS: METOPROLOL TARTRATE 25 MG TABLET GT SCH ×2 (08:30→21:45)
[2018-02-20] MEDS: POLYETHYLENE GLYCOL 17 GM PACKET GT SCH (08:47)
[2018-02-20 12:28] VITALS: BP 104/75
[2018-02-20 20:27] VITALS: BP 121/82
[2018-02-20] MEDS: ATORVASTATIN 80 MG TABLET GT SCH (21:45)
[2018-02-21 01:40] VITALS: BP 120/77
[2018-02-21] MEDS: PIPERACILLIN/TAZO/PMX 4.5GM 100 ML IV SCH ×4 (05:22→23:35)
[2018-02-21 06:09] LABS: ALBUMIN 2.1 g/dL (3.4-5.0); ANION GAP 8 mmol/L (5-15); CALCIUM 9.1 mg/dL (8.5-10.1); CHLORIDE 105 mmol/L (98-107); CREATININE 0.54 mg/dL (0.55-1.02)
[2018-02-21 06:33] LABS: BASOPHILS # (AUTO) 0.05 x10^3/uL (0-0.1); BASOPHILS % (AUTO) 1 % (0-1); EOSINOPHILS # (AUTO) 0.12 x10^3/uL (0-0.4); EOSINOPHILS % (AUTO) 2 % (1-7); LYMPHOCYTES # (AUTO) 2.43 x10^3/uL (1-3.4); LYMPHOCYTES % (AUTO) 34 % (22-44); MD SCAN; MEAN CORPUSCULAR HEMOGLOBIN 27.1 pg (27.0-34.8); MEAN CORPUSCULAR HGB CONC 32.5 g/dL (32.4-35.8); MEAN CORPUSCULAR VOLUME 83.3 fL (80-100); MEAN PLATELET VOLUME 11.6 fL (7.4-10.4); MONOCYTES % (AUTO) 11 % (2-9); NEUTROPHILS # (AUTO) 3.72 x10^3/uL (1.8-6.8); NEUTROPHILS % (AUTO) 52 % (42-75); PLATELET COUNT 209 x10^3/uL (130-400); RED BLOOD COUNT 4.27 x10^6/uL (3.82-5.3); RED CELL DISTRIBUTION WIDTH 16.3 % (9.6-15.2)
[2018-02-21 07:02] VITALS: BP 139/91
[2018-02-21] MEDS: POLYETHYLENE GLYCOL 17 GM PACKET GT SCH (09:00)
[2018-02-21 10:00] VITALS: BP 148/89
[2018-02-21] MEDS: METOPROLOL TARTRATE 25 MG TABLET GT SCH ×2 (10:02→22:25)
[2018-02-21 12:45] VITALS: BP 106/72
[2018-02-21 18:39] VITALS: BP 138/92
[2018-02-21 22:24] VITALS: BP 145/91
[2018-02-21] MEDS: ATORVASTATIN 80 MG TABLET GT SCH (22:25)
[2018-02-22 00:12] VITALS: BP 129/91
[2018-02-22] MEDS: ACETAMINOPHEN 325 MG TABLET GT PRN (05:23)
[2018-02-22] MEDS: PIPERACILLIN/TAZO/PMX 4.5GM 100 ML IV SCH ×3 (05:27→23:36)
[2018-02-22 06:48] VITALS: BP 125/86
[2018-02-22] MEDS: METOPROLOL TARTRATE 25 MG TABLET GT SCH ×2 (08:10→21:51)
[2018-02-22] MEDS: POLYETHYLENE GLYCOL 17 GM PACKET GT SCH (09:00)
[2018-02-22 12:23] VITALS: BP 107/72
[2018-02-22 19:03] VITALS: BP 115/78
[2018-02-22] MEDS: ATORVASTATIN 80 MG TABLET GT SCH (21:51)
[2018-02-23 03:00] VITALS: BP 147/92
[2018-02-23 06:45] VITALS: BP 138/92
[2018-02-23] MEDS: METOPROLOL TARTRATE 25 MG TABLET GT SCH ×2 (08:20→21:37)
[2018-02-23] MEDS: POLYETHYLENE GLYCOL 17 GM PACKET GT SCH (08:20)
[2018-02-23 12:20] VITALS: BP 138/87
[2018-02-23 19:06] VITALS: BP 128/85
[2018-02-23] MEDS: ATORVASTATIN 80 MG TABLET GT SCH (21:36)
[2018-02-24 00:07] VITALS: BP 136/85
[2018-02-24 06:51] VITALS: BP 125/106
[2018-02-24] MEDS: ENALAPRILAT 1.25 MG/ML, 2ML IV PRN (07:30)
[2018-02-24 07:33] VITALS: BP 153/100
[2018-02-24 09:21] VITALS: BP 157/95
[2018-02-24] MEDS: METOPROLOL TARTRATE 25 MG TABLET GT SCH ×2 (09:26→20:39)
[2018-02-24] MEDS: POLYETHYLENE GLYCOL 17 GM PACKET GT SCH (09:26)
[2018-02-24] MEDS: ACETAMINOPHEN 325 MG TABLET GT PRN ×2 (11:35→20:39)
[2018-02-24 13:57] VITALS: BP 106/76
--- NOTE | 2018-02-24 14:49 | NUR ---
NTL/FULL LIQUID DIET; swallow precautions sheet posted at bedside Addendum: 02/24/18 at [address] Amended: Links added.
[2018-02-24 19:25] VITALS: BP 129/88
[2018-02-24] MEDS: ATORVASTATIN 80 MG TABLET GT SCH (20:39)
[2018-02-25 01:36] VITALS: BP 130/76
[2018-02-25 06:42] VITALS: BP 135/78
[2018-02-25] MEDS: METOPROLOL TARTRATE 25 MG TABLET GT SCH ×2 (08:10→20:17)
[2018-02-25] MEDS: POLYETHYLENE GLYCOL 17 GM PACKET GT SCH (08:10)
[2018-02-25 13:29] VITALS: BP 136/95
[2018-02-25 18:40] VITALS: BP 119/88
[2018-02-25] MEDS: ATORVASTATIN 80 MG TABLET GT SCH (20:16)
[2018-02-26 00:07] VITALS: BP 114/81
[2018-02-26 06:55] VITALS: BP 117/82
[2018-02-26] MEDS: METOPROLOL TARTRATE 25 MG TABLET GT SCH ×2 (08:11→21:18)
[2018-02-26] MEDS: POLYETHYLENE GLYCOL 17 GM PACKET GT SCH (08:11)
[2018-02-26 12:20] VITALS: BP 113/81
[2018-02-26 19:01] VITALS: BP 120/75
[2018-02-26 21:18] VITALS: BP 128/88
[2018-02-26] MEDS: ATORVASTATIN 80 MG TABLET GT SCH (21:18)
[2018-02-27 01:27] VITALS: BP 118/72
[2018-02-27 06:52] VITALS: BP 124/85
[2018-02-27] MEDS: METOPROLOL TARTRATE 25 MG TABLET GT SCH ×2 (08:33→21:25)
[2018-02-27] MEDS: POLYETHYLENE GLYCOL 17 GM PACKET GT SCH (08:33)
[2018-02-27 12:15] VITALS: BP 110/76
[2018-02-27 19:24] VITALS: BP 112/79
[2018-02-27 21:25] VITALS: BP 108/70
[2018-02-27] MEDS: ATORVASTATIN 80 MG TABLET GT SCH (21:25)
[2018-02-28 00:06] VITALS: BP 124/74
[2018-02-28 07:02] VITALS: BP 110/74
[2018-02-28] MEDS: POLYETHYLENE GLYCOL 17 GM PACKET GT SCH (09:29)
[2018-02-28] MEDS: METOPROLOL TARTRATE 25 MG TABLET GT SCH ×2 (09:29→21:46)
[2018-02-28 12:25] VITALS: BP 113/79
[2018-02-28 19:10] VITALS: BP 103/70
[2018-02-28] MEDS: ATORVASTATIN 80 MG TABLET GT SCH (21:46)
[2018-03-01 00:52] VITALS: BP 116/68
[2018-03-01 06:47] VITALS: BP 134/87
[2018-03-01] MEDS: POLYETHYLENE GLYCOL 17 GM PACKET GT SCH (09:00)
[2018-03-01] MEDS: METOPROLOL TARTRATE 25 MG TABLET GT SCH ×2 (09:20→22:13)
[2018-03-01 12:27] VITALS: BP 117/79
[2018-03-01 19:06] VITALS: BP 117/76
[2018-03-01] MEDS: ATORVASTATIN 80 MG TABLET GT SCH (22:13)
[2018-03-02 01:30] VITALS: BP 109/71
[2018-03-02 06:53] VITALS: BP 118/79
[2018-03-02] MEDS: METOPROLOL TARTRATE 25 MG TABLET GT SCH ×2 (08:04→22:00)
[2018-03-02] MEDS: POLYETHYLENE GLYCOL 17 GM PACKET GT SCH (08:10)
[2018-03-02 12:41] VITALS: BP 106/70
[2018-03-02 18:44] VITALS: BP 117/81
[2018-03-02] MEDS: ATORVASTATIN 80 MG TABLET GT SCH (22:00)
[2018-03-03 00:25] VITALS: BP 124/86
[2018-03-03 07:09] VITALS: BP 122/87
[2018-03-03] MEDS: METOPROLOL TARTRATE 25 MG TABLET GT SCH ×2 (09:57→20:33)
[2018-03-03] MEDS: POLYETHYLENE GLYCOL 17 GM PACKET GT SCH (09:57)
[2018-03-03 12:32] VITALS: BP 106/71
[2018-03-03 19:00] VITALS: BP 128/83
[2018-03-03] MEDS: ATORVASTATIN 80 MG TABLET GT SCH (20:33)
[2018-03-04 01:11] VITALS: BP 135/87
[2018-03-04 07:39] VITALS: BP 123/85
[2018-03-04] MEDS: METOPROLOL TARTRATE 25 MG TABLET GT SCH ×2 (09:52→21:18)
[2018-03-04] MEDS: POLYETHYLENE GLYCOL 17 GM PACKET GT SCH (09:54)
[2018-03-04 17:11] VITALS: BP 109/74
[2018-03-04 19:26] VITALS: BP_SYST 125; BP_SYST 92; BP_DIAS 61; BP_DIAS 87
[2018-03-04] MEDS: ATORVASTATIN 80 MG TABLET GT SCH (21:18)
[2018-03-05 00:47] VITALS: BP 114/76
[2018-03-05 07:15] VITALS: BP 134/85
[2018-03-05] MEDS: POLYETHYLENE GLYCOL 17 GM PACKET GT SCH (09:00)
[2018-03-05] MEDS: METOPROLOL TARTRATE 25 MG TABLET GT SCH ×2 (10:27→20:55)
[2018-03-05 12:55] VITALS: BP 97/63
[2018-03-05 19:18] VITALS: BP 110/63
[2018-03-05] MEDS: ATORVASTATIN 80 MG TABLET GT SCH (20:55)
[2018-03-06 01:42] VITALS: BP 124/77
[2018-03-06 07:15] VITALS: BP 144/99
[2018-03-06] MEDS: POLYETHYLENE GLYCOL 17 GM PACKET GT SCH (09:17)
[2018-03-06] MEDS: METOPROLOL TARTRATE 25 MG TABLET GT SCH ×2 (09:17→21:44)
[2018-03-06 09:19] VITALS: BP 144/91
[2018-03-06 12:41] VITALS: BP 112/78
[2018-03-06 19:36] VITALS: BP 120/81
[2018-03-06] MEDS: ATORVASTATIN 80 MG TABLET GT SCH (21:44)
[2018-03-07 01:28] VITALS: BP 110/66
[2018-03-07 06:41] VITALS: BP 135/90
[2018-03-07] MEDS: POLYETHYLENE GLYCOL 17 GM PACKET GT SCH (07:54)
[2018-03-07] MEDS: METOPROLOL TARTRATE 25 MG TABLET GT SCH ×2 (08:01→21:10)
[2018-03-07 13:26] VITALS: BP 115/76
[2018-03-07 19:44] VITALS: BP 121/82
[2018-03-07] MEDS: ATORVASTATIN 80 MG TABLET GT SCH (21:10)
[2018-03-08 00:22] VITALS: BP 118/77
[2018-03-08 06:46] VITALS: BP 118/78
[2018-03-08] MEDS: METOPROLOL TARTRATE 25 MG TABLET GT SCH ×2 (08:56→21:23)
[2018-03-08] MEDS: POLYETHYLENE GLYCOL 17 GM PACKET GT SCH (08:56)
[2018-03-08 13:23] VITALS: BP 116/77
[2018-03-08 19:00] VITALS: BP 128/85
[2018-03-08 21:20] VITALS: BP 154/87
[2018-03-08] MEDS: ATORVASTATIN 80 MG TABLET GT SCH (21:23)
[2018-03-09 00:54] VITALS: BP 132/68
[2018-03-09 06:45] VITALS: BP 138/93
[2018-03-09] MEDS: POLYETHYLENE GLYCOL 17 GM PACKET GT SCH (07:56)
[2018-03-09] MEDS: METOPROLOL TARTRATE 25 MG TABLET GT SCH ×2 (09:18→22:02)
[2018-03-09 12:37] VITALS: BP 115/76
[2018-03-09 19:14] VITALS: BP 157/76
[2018-03-09] MEDS: ATORVASTATIN 80 MG TABLET GT SCH (22:02)
[2018-03-10 01:12] VITALS: BP 133/93
[2018-03-10 06:27] VITALS: BP 143/101
[2018-03-10] MEDS: METOPROLOL TARTRATE 25 MG TABLET GT SCH ×2 (08:06→21:16)
[2018-03-10] MEDS: POLYETHYLENE GLYCOL 17 GM PACKET GT SCH (08:06)
[2018-03-10 10:30] VITALS: BP 122/79
[2018-03-10 12:03] VITALS: BP 106/72
[2018-03-10 19:23] VITALS: BP 130/91
[2018-03-10] MEDS: ATORVASTATIN 80 MG TABLET GT SCH (21:16)
[2018-03-11 00:17] VITALS: BP 132/83
[2018-03-11 07:06] VITALS: BP 119/86
[2018-03-11] MEDS: POLYETHYLENE GLYCOL 17 GM PACKET GT SCH (09:00)
[2018-03-11] MEDS: METOPROLOL TARTRATE 25 MG TABLET GT SCH ×2 (09:32→21:33)
[2018-03-11 12:41] VITALS: BP 109/76
[2018-03-11 19:02] VITALS: BP 110/76
[2018-03-11] MEDS: ATORVASTATIN 80 MG TABLET GT SCH (21:33)
[2018-03-12 00:40] VITALS: BP 130/80
[2018-03-12 07:22] VITALS: BP 124/88
[2018-03-12] MEDS: POLYETHYLENE GLYCOL 17 GM PACKET GT SCH (09:00)
[2018-03-12] MEDS: METOPROLOL TARTRATE 25 MG TABLET GT SCH ×2 (09:23→20:13)
[2018-03-12 12:37] VITALS: BP 97/68
[2018-03-12 18:57] VITALS: BP 129/87
[2018-03-12] MEDS: ATORVASTATIN 80 MG TABLET GT SCH (20:13)
[2018-03-13 01:02] VITALS: BP 120/83
[2018-03-13 07:30] VITALS: BP 138/85
[2018-03-13] MEDS: POLYETHYLENE GLYCOL 17 GM PACKET GT SCH (08:57)
[2018-03-13] MEDS: METOPROLOL TARTRATE 25 MG TABLET GT SCH ×2 (08:57→21:22)
[2018-03-13 13:45] VITALS: BP 118/87
[2018-03-13 18:49] VITALS: BP 123/66
[2018-03-13] MEDS: ATORVASTATIN 80 MG TABLET GT SCH (21:22)
[2018-03-14 00:42] VITALS: BP 133/86
[2018-03-14 07:19] VITALS: BP 113/83
[2018-03-14] MEDS: METOPROLOL TARTRATE 25 MG TABLET GT SCH ×2 (09:29→21:08)
[2018-03-14] MEDS: POLYETHYLENE GLYCOL 17 GM PACKET GT SCH (09:29)
[2018-03-14 13:06] VITALS: BP 117/79
[2018-03-14 18:51] VITALS: BP 107/72
[2018-03-14] MEDS: ATORVASTATIN 80 MG TABLET GT SCH (21:07)
[2018-03-15 01:08] VITALS: BP 114/75
[2018-03-15 07:20] VITALS: BP 119/82
[2018-03-15] MEDS: POLYETHYLENE GLYCOL 17 GM PACKET GT SCH (09:57)
[2018-03-15] MEDS: METOPROLOL TARTRATE 25 MG TABLET GT SCH ×2 (09:58→20:57)
[2018-03-15 13:01] VITALS: BP 114/79
[2018-03-15 18:36] VITALS: BP 117/73
[2018-03-15] MEDS: ATORVASTATIN 80 MG TABLET GT SCH (20:56)
[2018-03-16 01:10] VITALS: BP 119/79
[2018-03-16 07:20] VITALS: BP 113/78
[2018-03-16] MEDS: POLYETHYLENE GLYCOL 17 GM PACKET GT SCH (09:00)
[2018-03-16] MEDS: METOPROLOL TARTRATE 25 MG TABLET GT SCH ×2 (09:53→20:09)
[2018-03-16 13:09] VITALS: BP 118/76
[2018-03-16 19:23] VITALS: BP 106/71
[2018-03-16] MEDS: ATORVASTATIN 80 MG TABLET GT SCH (20:08)
[2018-03-17 01:09] VITALS: BP 147/92
[2018-03-17 06:59] VITALS: BP 142/89
[2018-03-17] MEDS: POLYETHYLENE GLYCOL 17 GM PACKET GT SCH (09:00)
[2018-03-17] MEDS: METOPROLOL TARTRATE 25 MG TABLET GT SCH ×2 (09:23→20:47)
[2018-03-17 14:18] VITALS: BP 139/84
[2018-03-17 20:11] VITALS: BP 110/81
[2018-03-17] MEDS: ATORVASTATIN 80 MG TABLET GT SCH (20:47)
[2018-03-18 00:38] VITALS: BP 132/84
[2018-03-18 07:04] VITALS: BP 132/87
[2018-03-18] MEDS: POLYETHYLENE GLYCOL 17 GM PACKET GT SCH (09:00)
[2018-03-18] MEDS: METOPROLOL TARTRATE 25 MG TABLET GT SCH ×2 (09:14→20:51)
[2018-03-18 14:02] VITALS: BP 129/82
[2018-03-18 19:32] VITALS: BP 115/76
[2018-03-18] MEDS: ATORVASTATIN 80 MG TABLET GT SCH (20:51)
[2018-03-19 01:33] VITALS: BP 147/87
[2018-03-19 06:58] VITALS: BP 147/83
[2018-03-19] MEDS: POLYETHYLENE GLYCOL 17 GM PACKET GT SCH (09:31)
[2018-03-19] MEDS: METOPROLOL TARTRATE 25 MG TABLET GT SCH ×2 (09:31→21:04)
[2018-03-19 13:20] VITALS: BP 139/78
[2018-03-19 19:06] VITALS: BP 115/74
[2018-03-19] MEDS: ATORVASTATIN 80 MG TABLET GT SCH (21:04)
[2018-03-20 00:15] VITALS: BP 130/85
[2018-03-20 07:02] VITALS: BP 129/86
[2018-03-20] MEDS: METOPROLOL TARTRATE 25 MG TABLET GT SCH ×2 (10:00→23:07)
[2018-03-20] MEDS: POLYETHYLENE GLYCOL 17 GM PACKET GT SCH (10:04)
[2018-03-20 18:47] VITALS: BP 107/69
[2018-03-20] MEDS: ATORVASTATIN 80 MG TABLET GT SCH (23:07)
[2018-03-20] MEDS: ACETAMINOPHEN 325 MG TABLET GT PRN (23:07)
[2018-03-21 00:06] VITALS: BP 125/83
[2018-03-21 05:38] LABS: ALBUMIN 2.7 g/dL (3.4-5.0); ANION GAP 9 mmol/L (5-15); CALCIUM 8.4 mg/dL (8.5-10.1); CHLORIDE 106 mmol/L (98-107)
[2018-03-21 05:39] LABS: CREATININE 0.66 mg/dL (0.55-1.02)
[2018-03-21 07:15] VITALS: BP 118/82
[2018-03-21] MEDS: POLYETHYLENE GLYCOL 17 GM PACKET GT SCH (09:48)
[2018-03-21] MEDS: METOPROLOL TARTRATE 25 MG TABLET GT SCH ×2 (09:48→22:06)
[2018-03-21 22:04] VITALS: BP 136/77
[2018-03-21] MEDS: ATORVASTATIN 80 MG TABLET GT SCH (22:06)
[2018-03-22 03:10] VITALS: BP 134/85
[2018-03-22 06:34] VITALS: BP 137/78
[2018-03-22] MEDS: POLYETHYLENE GLYCOL 17 GM PACKET GT SCH (08:34)
[2018-03-22] MEDS: METOPROLOL TARTRATE 25 MG TABLET GT SCH ×2 (09:54→21:13)
[2018-03-22 12:35] VITALS: BP 113/77
[2018-03-22 20:00] VITALS: BP 117/71
[2018-03-22] MEDS: ATORVASTATIN 80 MG TABLET GT SCH (21:13)
[2018-03-23 02:00] VITALS: BP 132/88
[2018-03-23 06:43] VITALS: BP 146/91
[2018-03-23] MEDS: POLYETHYLENE GLYCOL 17 GM PACKET GT SCH (07:42)
[2018-03-23] MEDS: METOPROLOL TARTRATE 25 MG TABLET GT SCH ×2 (09:29→20:23)
[2018-03-23 12:44] VITALS: BP 116/70
[2018-03-23 19:42] VITALS: BP 117/71
[2018-03-23] MEDS: ATORVASTATIN 80 MG TABLET GT SCH (20:22)
[2018-03-24 01:24] VITALS: BP 124/82
[2018-03-24 07:30] VITALS: BP 151/106
[2018-03-24] MEDS: POLYETHYLENE GLYCOL 17 GM PACKET GT SCH (07:58)
[2018-03-24] MEDS: METOPROLOL TARTRATE 25 MG TABLET GT SCH (07:58)
[2018-03-24 13:10] VITALS: BP 138/87
[2018-03-24] MEDS: METOPROLOL TARTRATE 50 MG TABLET GT SCH (18:15)
[2018-03-24 19:57] VITALS: BP 115/77
[2018-03-24] MEDS ORDERED: METOPROLOL TARTRATE 50 MG TABLET GT SCH (21:00)
[2018-03-24] MEDS: ATORVASTATIN 80 MG TABLET GT SCH (21:21)
[2018-03-24 22:32] VITALS: BP 128/87
[2018-03-25 02:00] VITALS: BP 132/80
[2018-03-25 05:04] LABS: MICROSCOPIC AUTO
[2018-03-25 05:06] LABS: CULTURE INDICATED? YES
[2018-03-25] MEDS: METOPROLOL TARTRATE 50 MG TABLET GT SCH ×2 (06:00→18:07)
[2018-03-25 06:11] VITALS: BP 135/86
[2018-03-25 06:49] VITALS: BP 134/87
[2018-03-25] MEDS: POLYETHYLENE GLYCOL 17 GM PACKET GT SCH (07:27)
[2018-03-25] MEDS ORDERED: METOPROLOL TARTRATE 50 MG TABLET PO ONE (08:00)
[2018-03-25] MEDS: CIPROFLOXACIN 500 MG TABLET PO SCH ×2 (08:35→21:59)
[2018-03-25 12:29] VITALS: BP 96/70
[2018-03-25 18:10] VITALS: BP 130/82
[2018-03-25 19:04] VITALS: BP 105/71
[2018-03-25] MEDS: ATORVASTATIN 80 MG TABLET GT SCH (21:59)
[2018-03-26 05:05] VITALS: BP 151/87
[2018-03-26] MEDS: METOPROLOL TARTRATE 50 MG TABLET GT SCH ×2 (05:06→22:09)
[2018-03-26] MEDS: POLYETHYLENE GLYCOL 17 GM PACKET GT SCH (07:56)
[2018-03-26 10:05] VITALS: BP 107/78
[2018-03-26] MEDS: CIPROFLOXACIN 500 MG TABLET PO SCH (11:11)
[2018-03-26 19:36] VITALS: BP 133/87
[2018-03-26 20:00] VITALS: BP 128/79
[2018-03-26] MEDS: ATORVASTATIN 80 MG TABLET GT SCH (22:09)
[2018-03-27] MEDS ORDERED: METOPROLOL TARTRATE 50 MG TABLET GT SCH (07:00)
[2018-03-27 07:06] VITALS: BP 131/88
[2018-03-27] MEDS: POLYETHYLENE GLYCOL 17 GM PACKET GT SCH (07:31)
[2018-03-27 19:20] VITALS: BP 136/93
[2018-03-27] MEDS: ATORVASTATIN 80 MG TABLET GT SCH (21:00)
[2018-03-27] MEDS: METOPROLOL TARTRATE 50 MG TABLET GT SCH (22:21)
[2018-03-28 07:12] VITALS: BP 136/92
[2018-03-28] MEDS: METOPROLOL TARTRATE 50 MG TABLET GT SCH ×2 (07:37→18:29)
[2018-03-28] MEDS: POLYETHYLENE GLYCOL 17 GM PACKET GT SCH (07:47)
[2018-03-28 20:00] VITALS: BP 134/72
[2018-03-28] MEDS: ATORVASTATIN 80 MG TABLET GT SCH (22:34)
[2018-03-29 07:03] VITALS: BP 141/97
[2018-03-29] MEDS: POLYETHYLENE GLYCOL 17 GM PACKET GT SCH (07:07)
[2018-03-29] MEDS: METOPROLOL TARTRATE 50 MG TABLET GT SCH ×2 (07:07→18:32)
[2018-03-29 12:19] VITALS: BP 131/92
[2018-03-29 20:00] VITALS: BP 129/88
[2018-03-29] MEDS: ATORVASTATIN 80 MG TABLET GT SCH (21:22)
[2018-03-30 06:34] VITALS: BP 106/65
[2018-03-30] MEDS: METOPROLOL TARTRATE 50 MG TABLET GT SCH ×2 (10:33→19:38)
[2018-03-30] MEDS: POLYETHYLENE GLYCOL 17 GM PACKET GT SCH (10:34)
[2018-03-30] MEDS: ATORVASTATIN 80 MG TABLET GT SCH (19:38)
[2018-03-30 19:41] VITALS: BP 134/93
[2018-03-31 06:36] VITALS: BP 128/86
[2018-03-31] MEDS: METOPROLOL TARTRATE 50 MG TABLET GT SCH ×2 (08:47→20:47)
[2018-03-31] MEDS: POLYETHYLENE GLYCOL 17 GM PACKET GT SCH (09:37)
[2018-03-31 20:00] VITALS: BP 122/70
[2018-03-31] MEDS: ATORVASTATIN 80 MG TABLET GT SCH (20:47)
[2018-04-01 07:12] VITALS: BP 124/73
[2018-04-01] MEDS: POLYETHYLENE GLYCOL 17 GM PACKET GT SCH (07:59)
[2018-04-01] MEDS: METOPROLOL TARTRATE 50 MG TABLET GT SCH ×2 (08:11→20:56)
[2018-04-01 12:51] VITALS: BP 113/80
[2018-04-01 19:52] VITALS: BP 126/84
[2018-04-01] MEDS: ATORVASTATIN 80 MG TABLET GT SCH (20:56)
[2018-04-02 00:34] VITALS: BP 134/88
[2018-04-02 07:18] VITALS: BP 129/86
[2018-04-02] MEDS: POLYETHYLENE GLYCOL 17 GM PACKET GT SCH (09:02)
[2018-04-02] MEDS: METOPROLOL TARTRATE 50 MG TABLET GT SCH ×2 (09:17→20:46)
[2018-04-02 13:25] VITALS: BP 118/82
[2018-04-02 18:58] VITALS: BP 119/73
[2018-04-02] MEDS: ATORVASTATIN 80 MG TABLET GT SCH (20:47)
[2018-04-03 00:57] VITALS: BP 130/71
[2018-04-03] MEDS: METOPROLOL TARTRATE 50 MG TABLET GT SCH ×2 (07:32→20:19)
[2018-04-03] MEDS: POLYETHYLENE GLYCOL 17 GM PACKET GT SCH (07:36)
[2018-04-03 07:38] VITALS: BP 146/95
[2018-04-03 12:57] VITALS: BP 105/86
[2018-04-03 19:16] VITALS: BP 116/74
[2018-04-03] MEDS: ATORVASTATIN 80 MG TABLET GT SCH (20:19)
[2018-04-04 00:57] VITALS: BP 123/83
[2018-04-04 08:14] VITALS: BP 140/75
[2018-04-04] MEDS: METOPROLOL TARTRATE 50 MG TABLET GT SCH ×2 (08:27→21:11)
[2018-04-04 15:23] VITALS: BP 137/76
[2018-04-04 20:00] VITALS: BP 125/77
[2018-04-04] MEDS: ATORVASTATIN 80 MG TABLET GT SCH (21:05)
[2018-04-05 02:00] VITALS: BP 146/89
[2018-04-05 07:36] VITALS: BP 131/81
[2018-04-05 09:00] VITALS: BP 126/84
[2018-04-05] MEDS: METOPROLOL TARTRATE 50 MG TABLET GT SCH ×2 (09:04→22:39)
[2018-04-05 14:13] VITALS: BP 137/78
[2018-04-05] MEDS: ATORVASTATIN 80 MG TABLET GT SCH (21:00)
[2018-04-05 22:38] VITALS: BP 124/88
[2018-04-06 07:45] VITALS: BP 146/86
[2018-04-06] MEDS: POLYETHYLENE GLYCOL 17 GM PACKET GT SCH (08:35)
[2018-04-06] MEDS: METOPROLOL TARTRATE 50 MG TABLET GT SCH ×2 (10:12→21:00)
[2018-04-06 14:35] VITALS: BP 144/78
[2018-04-06 20:53] VITALS: BP 123/83
[2018-04-06] MEDS: ATORVASTATIN 80 MG TABLET GT SCH (21:00)
[2018-04-07 07:20] VITALS: BP 143/74
[2018-04-07] MEDS: METOPROLOL TARTRATE 50 MG TABLET GT SCH ×2 (07:36→20:20)
[2018-04-07 19:47] VITALS: BP 132/89
[2018-04-07] MEDS: ATORVASTATIN 80 MG TABLET GT SCH (20:19)
[2018-04-08 07:04] VITALS: BP 152/90
[2018-04-08] MEDS: METOPROLOL TARTRATE 50 MG TABLET GT SCH ×2 (08:13→21:48)
[2018-04-08] MEDS: AMLODIPINE 2.5 MG TABLET PO SCH (08:13)
[2018-04-08] MEDS: ATORVASTATIN 80 MG TABLET GT SCH (21:47)
[2018-04-08 21:59] VITALS: BP 128/92
[2018-04-09 03:59] VITALS: BP 127/83
[2018-04-09 07:38] VITALS: BP 136/72
[2018-04-09] MEDS: POLYETHYLENE GLYCOL 17 GM PACKET GT SCH (08:31)
[2018-04-09] MEDS: METOPROLOL TARTRATE 50 MG TABLET GT SCH ×2 (09:01→21:05)
[2018-04-09] MEDS: AMLODIPINE 2.5 MG TABLET PO SCH (09:01)
[2018-04-09] MEDS: ATORVASTATIN 80 MG TABLET GT SCH (21:05)
[2018-04-09 22:35] VITALS: BP 123/81
[2018-04-10 06:35] VITALS: BP 120/82
[2018-04-10] MEDS: AMLODIPINE 2.5 MG TABLET PO SCH (07:45)
[2018-04-10] MEDS: POLYETHYLENE GLYCOL 17 GM PACKET GT SCH (07:45)
[2018-04-10] MEDS: METOPROLOL TARTRATE 50 MG TABLET GT SCH ×2 (07:45→20:03)
[2018-04-10] MEDS ORDERED: POLYETHYLENE GLYCOL 17 GM PACKET GT PRN (11:00)
[2018-04-10 18:49] VITALS: BP 110/58
[2018-04-10] MEDS: ATORVASTATIN 80 MG TABLET GT SCH (20:03)
[2018-04-11 07:53] VITALS: BP 171/100
[2018-04-11] MEDS: METOPROLOL TARTRATE 50 MG TABLET GT SCH ×2 (09:33→20:48)
[2018-04-11] MEDS: AMLODIPINE 2.5 MG TABLET PO SCH (09:33)
[2018-04-11 14:36] VITALS: BP 123/82
[2018-04-11 19:25] VITALS: BP 111/71
[2018-04-11 20:47] VITALS: BP 120/76
[2018-04-11] MEDS: ATORVASTATIN 80 MG TABLET GT SCH (20:47)
[2018-04-12 01:05] VITALS: BP 142/83
[2018-04-12 07:09] VITALS: BP 145/98
[2018-04-12] MEDS: AMLODIPINE 5 MG TABLET PO SCH (09:20)
[2018-04-12] MEDS: METOPROLOL TARTRATE 50 MG TABLET GT SCH ×2 (09:20→20:50)
[2018-04-12 20:48] VITALS: BP 117/84
[2018-04-12] MEDS: ATORVASTATIN 80 MG TABLET GT SCH (20:50)
[2018-04-13 07:10] VITALS: BP 128/86
[2018-04-13] MEDS: METOPROLOL TARTRATE 50 MG TABLET GT SCH ×2 (09:21→20:19)
[2018-04-13] MEDS: AMLODIPINE 5 MG TABLET PO SCH (09:21)
[2018-04-13 20:03] VITALS: BP 119/68
[2018-04-13] MEDS: ATORVASTATIN 80 MG TABLET GT SCH (20:19)
[2018-04-14 02:08] VITALS: BP 136/92
[2018-04-14 07:10] VITALS: BP 137/84
[2018-04-14] MEDS: METOPROLOL TARTRATE 50 MG TABLET GT SCH ×2 (08:50→21:54)
[2018-04-14] MEDS: AMLODIPINE 5 MG TABLET PO SCH (08:51)
[2018-04-14 19:54] VITALS: BP 128/82
[2018-04-14] MEDS: ATORVASTATIN 80 MG TABLET GT SCH (21:54)
[2018-04-15 00:10] VITALS: BP 122/86
[2018-04-15 08:20] VITALS: BP 158/90
[2018-04-15] MEDS: AMLODIPINE 5 MG TABLET PO SCH (09:11)
[2018-04-15] MEDS: METOPROLOL TARTRATE 50 MG TABLET GT SCH ×2 (09:11→20:22)
[2018-04-15 14:40] VITALS: BP 111/73
[2018-04-15 18:56] VITALS: BP 119/78
[2018-04-15] MEDS: ATORVASTATIN 80 MG TABLET GT SCH (20:22)
[2018-04-16 00:31] VITALS: BP 126/84
[2018-04-16 07:08] VITALS: BP 122/79
[2018-04-16] MEDS: AMLODIPINE 5 MG TABLET PO SCH (10:16)
[2018-04-16] MEDS: METOPROLOL TARTRATE 50 MG TABLET GT SCH ×2 (10:17→20:35)
[2018-04-16 13:39] VITALS: BP 119/73
[2018-04-16 18:32] VITALS: BP 104/69
[2018-04-16] MEDS: ATORVASTATIN 80 MG TABLET GT SCH (20:35)
[2018-04-17 01:02] VITALS: BP 113/78
[2018-04-17 07:27] VITALS: BP 116/79
[2018-04-17] MEDS: AMLODIPINE 5 MG TABLET PO SCH (08:14)
[2018-04-17] MEDS: METOPROLOL TARTRATE 50 MG TABLET GT SCH ×3 (08:15→21:09)
[2018-04-17 13:16] VITALS: BP 105/68
[2018-04-17 18:48] VITALS: BP 102/71
[2018-04-17] MEDS: ATORVASTATIN 80 MG TABLET GT SCH (21:09)
[2018-04-18 00:42] VITALS: BP 131/80
[2018-04-18 06:53] VITALS: BP 138/87
[2018-04-18] MEDS: METOPROLOL TARTRATE 50 MG TABLET GT SCH ×2 (08:32→19:52)
[2018-04-18] MEDS: AMLODIPINE 5 MG TABLET PO SCH (08:32)
[2018-04-18 18:52] VITALS: BP 102/67
[2018-04-18 19:50] VITALS: BP 115/76
[2018-04-18] MEDS: ATORVASTATIN 80 MG TABLET GT SCH (19:52)
[2018-04-19 01:18] VITALS: BP 102/72
[2018-04-19 07:08] VITALS: BP 127/78
[2018-04-19] MEDS: AMLODIPINE 5 MG TABLET PO SCH (08:16)
[2018-04-19] MEDS: METOPROLOL TARTRATE 50 MG TABLET GT SCH ×2 (08:16→19:56)
[2018-04-19 19:04] VITALS: BP 120/77
[2018-04-19] MEDS: ATORVASTATIN 80 MG TABLET GT SCH (19:56)
[2018-04-20 02:02] VITALS: BP 112/78
[2018-04-20 06:46] VITALS: BP 148/89
[2018-04-20] MEDS: METOPROLOL TARTRATE 50 MG TABLET GT SCH ×2 (08:14→21:49)
[2018-04-20] MEDS: AMLODIPINE 5 MG TABLET PO SCH (08:14)
[2018-04-20 19:06] VITALS: BP 115/76
[2018-04-20] MEDS: ATORVASTATIN 80 MG TABLET GT SCH (21:48)
[2018-04-21 02:54] VITALS: BP 127/83
[2018-04-21 07:55] VITALS: BP 145/81
[2018-04-21] MEDS: METOPROLOL TARTRATE 50 MG TABLET GT SCH ×2 (07:57→20:03)
[2018-04-21] MEDS: AMLODIPINE 5 MG TABLET PO SCH (07:57)
[2018-04-21 12:21] VITALS: BP 111/74
[2018-04-21] MEDS: ATORVASTATIN 80 MG TABLET GT SCH (20:02)
[2018-04-21 20:25] VITALS: BP 121/79
[2018-04-22 00:40] VITALS: BP 119/83
[2018-04-22 07:29] VITALS: BP 122/86
[2018-04-22 09:34] VITALS: BP 135/83
[2018-04-22] MEDS: AMLODIPINE 5 MG TABLET PO SCH (09:35)
[2018-04-22] MEDS: METOPROLOL TARTRATE 50 MG TABLET GT SCH ×2 (09:36→21:26)
[2018-04-22 12:53] VITALS: BP 142/85
[2018-04-22 18:31] VITALS: BP 114/62
[2018-04-22] MEDS: ATORVASTATIN 80 MG TABLET GT SCH (21:26)
[2018-04-23 01:08] VITALS: BP 127/75
[2018-04-23 07:07] VITALS: BP 121/82
[2018-04-23] MEDS: AMLODIPINE 5 MG TABLET PO SCH (08:57)
[2018-04-23] MEDS: METOPROLOL TARTRATE 50 MG TABLET GT SCH ×2 (08:57→20:46)
[2018-04-23 19:10] VITALS: BP 109/75
[2018-04-23] MEDS: ATORVASTATIN 80 MG TABLET GT SCH (20:46)
[2018-04-24 00:25] VITALS: BP 119/77
[2018-04-24 09:26] VITALS: BP 141/98
[2018-04-24] MEDS: AMLODIPINE 5 MG TABLET PO SCH (10:03)
[2018-04-24] MEDS: METOPROLOL TARTRATE 50 MG TABLET GT SCH ×2 (10:03→20:32)
[2018-04-24 12:56] VITALS: BP 113/70
[2018-04-24 13:47] VITALS: BP 116/73
[2018-04-24 19:50] VITALS: BP 104/71
[2018-04-24] MEDS: ATORVASTATIN 80 MG TABLET GT SCH (20:30)
[2018-04-25 07:16] VITALS: BP 139/85
[2018-04-25 09:51] VITALS: BP 147/83
[2018-04-25] MEDS: AMLODIPINE 5 MG TABLET PO SCH (09:53)
[2018-04-25] MEDS: METOPROLOL TARTRATE 50 MG TABLET GT SCH ×2 (09:53→20:38)
[2018-04-25 12:10] VITALS: BP 113/77
[2018-04-25 19:22] VITALS: BP 119/79
[2018-04-25] MEDS: ATORVASTATIN 80 MG TABLET GT SCH (20:38)
[2018-04-26 07:32] VITALS: BP 130/86
[2018-04-26] MEDS: METOPROLOL TARTRATE 50 MG TABLET GT SCH ×2 (08:38→20:14)
[2018-04-26] MEDS: AMLODIPINE 5 MG TABLET PO SCH (08:38)
[2018-04-26 12:28] VITALS: BP 113/72
[2018-04-26 19:17] VITALS: BP 118/74
[2018-04-26] MEDS: ATORVASTATIN 80 MG TABLET GT SCH (20:13)
[2018-04-27 01:34] VITALS: BP 139/83
[2018-04-27 07:32] VITALS: BP 133/85
[2018-04-27] MEDS: AMLODIPINE 5 MG TABLET PO SCH (09:53)
[2018-04-27] MEDS: METOPROLOL TARTRATE 50 MG TABLET GT SCH ×2 (09:53→21:26)
[2018-04-27 12:54] VITALS: BP 111/74
[2018-04-27 19:37] VITALS: BP 106/72
[2018-04-27] MEDS: ATORVASTATIN 80 MG TABLET GT SCH (21:26)
[2018-04-28 00:48] VITALS: BP 112/77
[2018-04-28 07:43] VITALS: BP 104/71
[2018-04-28 08:35] LABS: BASOPHILS # (AUTO) 0.05 x10^3/uL (0-0.1); BASOPHILS % (AUTO) 1 % (0-1); EOSINOPHILS # (AUTO) 0.05 x10^3/uL (0-0.4); EOSINOPHILS % (AUTO) 1 % (1-7); LYMPHOCYTES # (AUTO) 2.57 x10^3/uL (1-3.4); LYMPHOCYTES % (AUTO) 41 % (22-44); MD NO; MEAN CORPUSCULAR HEMOGLOBIN 26.7 pg (27.0-34.8); MEAN CORPUSCULAR HGB CONC 32.5 g/dL (32.4-35.8); MEAN PLATELET VOLUME 10.4 fL (7.4-10.4); MONOCYTES # (AUTO) 0.86 x10^3/uL (0.2-0.8); MONOCYTES % (AUTO) 14 % (2-9); NEUTROPHILS # (AUTO) 2.68 x10^3/uL (1.8-6.8); NEUTROPHILS % (AUTO) 43 % (42-75); PLATELET COUNT 228 x10^3/uL (130-400); RED BLOOD COUNT 4.87 x10^6/uL (3.82-5.3); RED CELL DISTRIBUTION WIDTH 16.6 % (9.6-15.2)
[2018-04-28 08:47] LABS: ANION GAP 8 mmol/L (5-15); CALCIUM 9.7 mg/dL (8.5-10.1); CHLORIDE 103 mmol/L (98-107); CREATININE 0.56 mg/dL (0.55-1.02)
[2018-04-28] MEDS: METOPROLOL TARTRATE 50 MG TABLET GT SCH ×2 (09:17→21:27)
[2018-04-28] MEDS: AMLODIPINE 5 MG TABLET PO SCH (09:24)
[2018-04-28 19:06] VITALS: BP 125/79
[2018-04-28] MEDS: ATORVASTATIN 80 MG TABLET GT SCH (21:27)
[2018-04-29 00:44] VITALS: BP 118/77
[2018-04-29 07:53] VITALS: BP 137/82
[2018-04-29] MEDS: AMLODIPINE 5 MG TABLET PO SCH (09:56)
[2018-04-29] MEDS: METOPROLOL TARTRATE 50 MG TABLET GT SCH ×2 (09:56→21:01)
[2018-04-29] MEDS: ACETAMINOPHEN 325 MG TABLET GT PRN (15:00)
[2018-04-29 19:48] VITALS: BP 104/70
[2018-04-29] MEDS: ATORVASTATIN 80 MG TABLET GT SCH (21:02)
[2018-04-30 00:52] VITALS: BP 102/69
[2018-04-30 06:33] VITALS: BP 127/87
[2018-04-30] MEDS: AMLODIPINE 5 MG TABLET PO SCH (08:59)
[2018-04-30] MEDS: METOPROLOL TARTRATE 50 MG TABLET GT SCH ×2 (08:59→20:30)
[2018-04-30 12:23] VITALS: BP 106/71
[2018-04-30 20:18] VITALS: BP 118/79
[2018-04-30] MEDS: ATORVASTATIN 80 MG TABLET GT SCH (20:30)
[2018-05-01 00:54] VITALS: BP 126/84
[2018-05-01 06:49] VITALS: BP 138/87
[2018-05-01] MEDS: AMLODIPINE 5 MG TABLET PO SCH (08:08)
[2018-05-01] MEDS: METOPROLOL TARTRATE 50 MG TABLET GT SCH ×2 (08:08→22:03)
[2018-05-01 12:53] VITALS: BP 109/73
[2018-05-01 19:14] VITALS: BP 111/72
[2018-05-01] MEDS: ATORVASTATIN 80 MG TABLET GT SCH (22:03)
[2018-05-02 01:26] VITALS: BP 115/73
[2018-05-02 06:47] VITALS: BP 112/76
[2018-05-02] MEDS: METOPROLOL TARTRATE 50 MG TABLET GT SCH ×2 (08:04→21:39)
[2018-05-02] MEDS: AMLODIPINE 5 MG TABLET PO SCH (08:04)
[2018-05-02 12:30] VITALS: BP 127/78
[2018-05-02] MEDS: ATORVASTATIN 80 MG TABLET GT SCH (21:39)
[2018-05-03] MEDS: AMLODIPINE 5 MG TABLET PO SCH (08:02)
[2018-05-03] MEDS: METOPROLOL TARTRATE 50 MG TABLET GT SCH ×2 (08:03→22:29)
[2018-05-03 08:06] VITALS: BP 110/74
[2018-05-03] MEDS: ATORVASTATIN 80 MG TABLET GT SCH (22:29)
[2018-05-04 06:45] VITALS: BP 144/81
[2018-05-04] MEDS: AMLODIPINE 5 MG TABLET PO SCH (09:34)
[2018-05-04] MEDS: METOPROLOL TARTRATE 50 MG TABLET GT SCH ×2 (09:34→22:05)
[2018-05-04 22:05] VITALS: BP 130/84
[2018-05-04] MEDS: ATORVASTATIN 80 MG TABLET GT SCH (22:05)
[2018-05-05 07:33] VITALS: BP 134/80
[2018-05-05] MEDS: METOPROLOL TARTRATE 50 MG TABLET GT SCH ×2 (09:35→21:48)
[2018-05-05] MEDS: AMLODIPINE 5 MG TABLET PO SCH (09:35)
[2018-05-05 14:06] VITALS: BP 128/78
[2018-05-05 20:00] VITALS: BP 128/81
[2018-05-05] MEDS: ATORVASTATIN 80 MG TABLET GT SCH (21:48)
[2018-05-06 07:12] VITALS: BP 124/78
[2018-05-06] MEDS: AMLODIPINE 5 MG TABLET PO SCH (09:21)
[2018-05-06] MEDS: METOPROLOL TARTRATE 50 MG TABLET GT SCH ×2 (09:21→21:34)
[2018-05-06 16:39] VITALS: BP 122/76
[2018-05-06 20:00] VITALS: BP 107/76
[2018-05-06] MEDS: ATORVASTATIN 80 MG TABLET GT SCH (21:35)
[2018-05-07 07:03] VITALS: BP 113/75
[2018-05-07] MEDS: AMLODIPINE 5 MG TABLET PO SCH (10:00)
[2018-05-07] MEDS: METOPROLOL TARTRATE 50 MG TABLET GT SCH ×2 (10:00→20:33)
[2018-05-07 12:59] VITALS: BP 112/77
[2018-05-07 20:31] VITALS: BP 131/78
[2018-05-07] MEDS: ATORVASTATIN 80 MG TABLET GT SCH (20:33)
[2018-05-08 03:58] VITALS: BP 119/77
[2018-05-08 09:56] VITALS: BP 134/66
[2018-05-08] MEDS: AMLODIPINE 5 MG TABLET PO SCH (10:04)
[2018-05-08] MEDS: METOPROLOL TARTRATE 50 MG TABLET GT SCH ×2 (10:05→23:56)
[2018-05-08 19:20] VITALS: BP 110/72
[2018-05-08 19:53] VITALS: BP 110/72
[2018-05-08] MEDS: ATORVASTATIN 80 MG TABLET GT SCH (23:56)
[2018-05-09 01:37] VITALS: BP 112/73
[2018-05-09 07:43] VITALS: BP 96/62
[2018-05-09] MEDS: METOPROLOL TARTRATE 50 MG TABLET GT SCH ×3 (09:00→20:39)
[2018-05-09] MEDS: AMLODIPINE 5 MG TABLET PO SCH (10:56)
[2018-05-09 19:19] VITALS: BP 113/73
[2018-05-09] MEDS: ATORVASTATIN 80 MG TABLET GT SCH (20:39)
[2018-05-10 00:45] VITALS: BP 116/76
[2018-05-10 07:12] VITALS: BP 126/86
[2018-05-10] MEDS: AMLODIPINE 5 MG TABLET PO SCH (10:31)
[2018-05-10] MEDS: METOPROLOL TARTRATE 50 MG TABLET GT SCH ×2 (10:32→22:15)
[2018-05-10 13:45] VITALS: BP 114/75
[2018-05-10 19:15] VITALS: BP 103/68
[2018-05-10 22:10] VITALS: BP 113/73
[2018-05-10] MEDS: ATORVASTATIN 80 MG TABLET GT SCH (22:14)
[2018-05-11 00:22] VITALS: BP 132/91
[2018-05-11 08:52] VITALS: BP 122/76
[2018-05-11] MEDS: METOPROLOL TARTRATE 50 MG TABLET GT SCH ×2 (10:16→21:35)
[2018-05-11] MEDS: AMLODIPINE 5 MG TABLET PO SCH (10:17)
[2018-05-11 13:25] VITALS: BP 106/71
[2018-05-11 19:07] VITALS: BP 109/75
[2018-05-11 21:30] VITALS: BP 119/78
[2018-05-11] MEDS: ATORVASTATIN 80 MG TABLET GT SCH (21:35)
[2018-05-12 00:48] VITALS: BP 113/72
[2018-05-12 08:08] VITALS: BP 122/78
[2018-05-12] MEDS: METOPROLOL TARTRATE 50 MG TABLET GT SCH ×2 (08:17→20:54)
[2018-05-12] MEDS: AMLODIPINE 5 MG TABLET PO SCH (08:17)
[2018-05-12 19:37] VITALS: BP 121/78
[2018-05-12 20:53] VITALS: BP 107/73
[2018-05-12] MEDS: ATORVASTATIN 80 MG TABLET GT SCH (20:55)
[2018-05-13 00:46] VITALS: BP 117/80
[2018-05-13 07:10] VITALS: BP 120/78
[2018-05-13] MEDS: AMLODIPINE 5 MG TABLET PO SCH (09:41)
[2018-05-13] MEDS: METOPROLOL TARTRATE 50 MG TABLET GT SCH ×2 (09:42→21:49)
[2018-05-13 14:06] VITALS: BP 123/75
[2018-05-13 19:02] VITALS: BP 122/81
[2018-05-13] MEDS: ATORVASTATIN 80 MG TABLET GT SCH (21:49)
[2018-05-14 00:16] VITALS: BP 131/88
[2018-05-14 07:01] VITALS: BP 139/91
[2018-05-14] MEDS: AMLODIPINE 5 MG TABLET PO SCH (09:35)
[2018-05-14] MEDS: METOPROLOL TARTRATE 50 MG TABLET GT SCH ×2 (09:35→21:00)
[2018-05-14 12:56] VITALS: BP 115/72
[2018-05-14 18:45] VITALS: BP 106/73
[2018-05-14] MEDS: ATORVASTATIN 80 MG TABLET GT SCH (22:47)
[2018-05-15 01:44] VITALS: BP 134/85
[2018-05-15 06:38] VITALS: BP 142/98
[2018-05-15] MEDS: AMLODIPINE 5 MG TABLET PO SCH (09:29)
[2018-05-15] MEDS: METOPROLOL TARTRATE 50 MG TABLET GT SCH ×2 (09:30→20:59)
[2018-05-15 12:48] VITALS: BP 120/81
[2018-05-15 20:00] VITALS: BP 131/85
[2018-05-15] MEDS: ATORVASTATIN 80 MG TABLET GT SCH (20:59)
[2018-05-16 03:58] VITALS: BP 130/83
[2018-05-16 08:27] VITALS: BP 128/84
[2018-05-16] MEDS: AMLODIPINE 5 MG TABLET PO SCH (09:25)
[2018-05-16] MEDS: METOPROLOL TARTRATE 50 MG TABLET GT SCH ×2 (09:26→20:42)
[2018-05-16 15:14] VITALS: BP 124/76
[2018-05-16 19:52] VITALS: BP 130/82
[2018-05-16] MEDS: ATORVASTATIN 80 MG TABLET GT SCH (20:43)
[2018-05-17 03:57] VITALS: BP 114/76
[2018-05-17 07:26] VITALS: BP 100/67
[2018-05-17] MEDS: METOPROLOL TARTRATE 50 MG TABLET GT SCH ×2 (09:00→21:00)
[2018-05-17] MEDS: AMLODIPINE 5 MG TABLET PO SCH (10:35)
[2018-05-17 13:09] VITALS: BP 112/76
[2018-05-17 19:02] VITALS: BP 140/87
[2018-05-17] MEDS: ATORVASTATIN 80 MG TABLET GT SCH (21:00)
[2018-05-18 00:09] VITALS: BP 116/85
[2018-05-18 08:09] VITALS: BP 123/85
[2018-05-18] MEDS: METOPROLOL TARTRATE 50 MG TABLET GT SCH ×2 (08:18→20:09)
[2018-05-18] MEDS: AMLODIPINE 5 MG TABLET PO SCH (08:18)
[2018-05-18 12:58] VITALS: BP 115/73
[2018-05-18 20:07] VITALS: BP 110/76
[2018-05-18] MEDS: ATORVASTATIN 80 MG TABLET GT SCH (20:09)
[2018-05-18 22:36] VITALS: BP 119/70
[2018-05-19 00:54] VITALS: BP 129/91
[2018-05-19 07:27] VITALS: BP 118/82
[2018-05-19] MEDS: METOPROLOL TARTRATE 50 MG TABLET GT SCH ×2 (09:26→22:15)
[2018-05-19] MEDS: AMLODIPINE 5 MG TABLET PO SCH (09:26)
[2018-05-19 12:37] VITALS: BP 96/61
[2018-05-19 21:43] VITALS: BP 123/81
[2018-05-19] MEDS: ATORVASTATIN 80 MG TABLET GT SCH (22:15)
[2018-05-20 00:05] VITALS: BP 119/83
[2018-05-20 07:36] VITALS: BP 127/87
[2018-05-20] MEDS: METOPROLOL TARTRATE 50 MG TABLET GT SCH ×2 (08:44→22:02)
[2018-05-20] MEDS: AMLODIPINE 5 MG TABLET PO SCH (08:44)
[2018-05-20 12:25] VITALS: BP 122/82
[2018-05-20 20:09] VITALS: BP 121/78
[2018-05-20] MEDS: ATORVASTATIN 80 MG TABLET GT SCH (22:01)
[2018-05-21 01:40] VITALS: BP 120/67
[2018-05-21 07:05] VITALS: BP 117/80
[2018-05-21] MEDS: METOPROLOL TARTRATE 50 MG TABLET GT SCH ×2 (09:04→22:27)
[2018-05-21] MEDS: AMLODIPINE 5 MG TABLET PO SCH (09:04)
[2018-05-21 12:49] VITALS: BP 120/78
[2018-05-21 21:52] VITALS: BP 115/71
[2018-05-21] MEDS: ATORVASTATIN 80 MG TABLET GT SCH (22:26)
[2018-05-22 07:25] VITALS: BP 131/89
[2018-05-22] MEDS: AMLODIPINE 5 MG TABLET PO SCH (08:47)
[2018-05-22] MEDS: METOPROLOL TARTRATE 50 MG TABLET GT SCH ×2 (08:47→21:00)
[2018-05-22 12:48] VITALS: BP 128/85
[2018-05-22 19:41] VITALS: BP 106/69
[2018-05-22] MEDS: ATORVASTATIN 80 MG TABLET GT SCH (22:15)
[2018-05-23 08:17] VITALS: BP 123/84
[2018-05-23] MEDS: METOPROLOL TARTRATE 50 MG TABLET GT SCH ×2 (08:42→22:02)
[2018-05-23] MEDS: AMLODIPINE 5 MG TABLET PO SCH (08:42)
[2018-05-23 20:35] VITALS: BP 122/72
[2018-05-23] MEDS: ATORVASTATIN 80 MG TABLET GT SCH (22:02)
[2018-05-24 07:14] VITALS: BP 138/96
[2018-05-24 11:45] VITALS: BP 112/76
[2018-05-24] MEDS: METOPROLOL TARTRATE 50 MG TABLET GT SCH ×2 (11:51→20:54)
[2018-05-24] MEDS: AMLODIPINE 5 MG TABLET PO SCH (11:51)
[2018-05-24 13:30] VITALS: BP 125/91
[2018-05-24 18:57] VITALS: BP 106/66
[2018-05-24] MEDS: ATORVASTATIN 80 MG TABLET GT SCH (20:54)
[2018-05-25 01:11] VITALS: BP 124/82
[2018-05-25 07:21] VITALS: BP 111/75
[2018-05-25] MEDS: AMLODIPINE 5 MG TABLET PO SCH (09:04)
[2018-05-25] MEDS: METOPROLOL TARTRATE 50 MG TABLET GT SCH ×2 (09:04→20:09)
[2018-05-25 12:00] VITALS: BP 131/76
[2018-05-25 12:04] VITALS: BP 119/79
[2018-05-25 19:00] VITALS: BP 112/72
[2018-05-25] MEDS: ATORVASTATIN 80 MG TABLET GT SCH (20:09)
[2018-05-26 01:32] VITALS: BP 139/87
[2018-05-26 08:06] VITALS: BP 132/84
[2018-05-26] MEDS: METOPROLOL TARTRATE 50 MG TABLET GT SCH ×2 (08:48→20:38)
[2018-05-26] MEDS: AMLODIPINE 5 MG TABLET PO SCH (08:48)
[2018-05-26 19:48] VITALS: BP 96/62
[2018-05-26] MEDS: ATORVASTATIN 80 MG TABLET GT SCH (20:38)
[2018-05-27 01:32] VITALS: BP 120/81
[2018-05-27 07:18] VITALS: BP 123/79
[2018-05-27] MEDS: AMLODIPINE 5 MG TABLET PO SCH (09:48)
[2018-05-27] MEDS: METOPROLOL TARTRATE 50 MG TABLET GT SCH ×2 (09:49→21:12)
[2018-05-27 19:11] VITALS: BP 109/71
[2018-05-27] MEDS: ATORVASTATIN 80 MG TABLET GT SCH (21:11)
[2018-05-28 01:12] VITALS: BP 128/65
[2018-05-28 07:04] VITALS: BP 129/67
[2018-05-28] MEDS: METOPROLOL TARTRATE 50 MG TABLET GT SCH ×2 (09:00→20:42)
[2018-05-28] MEDS: AMLODIPINE 5 MG TABLET PO SCH (09:15)
[2018-05-28 19:39] VITALS: BP 107/72
[2018-05-28] MEDS: ATORVASTATIN 80 MG TABLET GT SCH (20:42)
[2018-05-29 07:38] VITALS: BP 156/90
[2018-05-29] MEDS: METOPROLOL TARTRATE 50 MG TABLET GT SCH ×2 (09:05→21:00)
[2018-05-29] MEDS: AMLODIPINE 5 MG TABLET PO SCH (09:05)
[2018-05-29 20:34] VITALS: BP 106/64
[2018-05-29 22:00] VITALS: BP 99/63
[2018-05-29] MEDS: ATORVASTATIN 80 MG TABLET GT SCH (22:04)
[2018-05-30 00:30] VITALS: BP 100/66
[2018-05-30 08:12] VITALS: BP 128/74
[2018-05-30] MEDS: AMLODIPINE 5 MG TABLET PO SCH (08:49)
[2018-05-30] MEDS: METOPROLOL TARTRATE 50 MG TABLET GT SCH ×2 (08:50→21:21)
[2018-05-30 15:46] VITALS: BP 107/68
[2018-05-30 18:34] VITALS: BP 100/70
[2018-05-30 21:10] VITALS: BP 120/82
[2018-05-30] MEDS: ATORVASTATIN 80 MG TABLET GT SCH (21:21)
[2018-05-31 00:07] VITALS: BP 118/76
[2018-05-31 07:55] VITALS: BP 138/90
[2018-05-31] MEDS: METOPROLOL TARTRATE 50 MG TABLET GT SCH ×2 (08:30→20:47)
[2018-05-31] MEDS: AMLODIPINE 5 MG TABLET PO SCH (08:35)
[2018-05-31 13:57] VITALS: BP 99/65
[2018-05-31 20:02] VITALS: BP 106/71
[2018-05-31] MEDS: ATORVASTATIN 80 MG TABLET GT SCH (20:48)
[2018-05-31] MEDS: ACETAMINOPHEN 325 MG TABLET GT PRN (21:04)
[2018-06-01 07:46] VITALS: BP 110/76
[2018-06-01 08:58] VITALS: BP 134/85
[2018-06-01] MEDS: METOPROLOL TARTRATE 50 MG TABLET GT SCH ×2 (08:59→20:48)
[2018-06-01] MEDS: AMLODIPINE 5 MG TABLET PO SCH (08:59)
[2018-06-01 14:13] VITALS: BP 129/72
[2018-06-01 20:04] VITALS: BP 118/75
[2018-06-01] MEDS: ATORVASTATIN 80 MG TABLET GT SCH (20:47)
[2018-06-02 01:31] VITALS: BP 124/85
[2018-06-02 07:05] VITALS: BP 124/81
[2018-06-02] MEDS: AMLODIPINE 5 MG TABLET PO SCH (10:00)
[2018-06-02] MEDS: METOPROLOL TARTRATE 50 MG TABLET GT SCH ×2 (10:00→21:00)
[2018-06-02 13:30] VITALS: BP 107/70
[2018-06-02 18:58] VITALS: BP 115/81
[2018-06-02 21:46] VITALS: BP 102/65
[2018-06-02] MEDS: ATORVASTATIN 80 MG TABLET GT SCH (21:49)
[2018-06-03 00:40] VITALS: BP 112/73
[2018-06-03 06:45] VITALS: BP 124/76
[2018-06-03] MEDS: AMLODIPINE 5 MG TABLET PO SCH (08:07)
[2018-06-03] MEDS: METOPROLOL TARTRATE 50 MG TABLET GT SCH ×2 (08:07→21:00)
[2018-06-03 14:17] VITALS: BP 127/79
[2018-06-03 19:20] VITALS: BP 105/71
[2018-06-03] MEDS: ATORVASTATIN 80 MG TABLET GT SCH (21:31)
[2018-06-04 01:48] VITALS: BP 110/67
[2018-06-04 06:59] VITALS: BP 135/86
[2018-06-04] MEDS: AMLODIPINE 5 MG TABLET PO SCH (09:41)
[2018-06-04] MEDS: METOPROLOL TARTRATE 50 MG TABLET GT SCH ×2 (09:41→21:43)
[2018-06-04 13:33] VITALS: BP 108/73
[2018-06-04 19:52] VITALS: BP 113/75
[2018-06-04] MEDS: ATORVASTATIN 80 MG TABLET GT SCH (21:43)
[2018-06-05 00:01] VITALS: BP 120/67
[2018-06-05 07:34] VITALS: BP 109/76
[2018-06-05 08:49] VITALS: BP 100/68
[2018-06-05] MEDS: METOPROLOL TARTRATE 50 MG TABLET GT SCH ×2 (08:49→21:43)
[2018-06-05] MEDS: AMLODIPINE 5 MG TABLET PO SCH (08:50)
[2018-06-05 13:23] VITALS: BP 110/65
[2018-06-05 20:36] VITALS: BP 131/86
[2018-06-05] MEDS: ATORVASTATIN 80 MG TABLET GT SCH (21:43)
[2018-06-05 22:53] VITALS: BP 135/95
[2018-06-06] MEDS: METOPROLOL TARTRATE 50 MG TABLET GT SCH ×2 (07:59→20:24)
[2018-06-06 08:00] VITALS: BP 141/100
[2018-06-06] MEDS: AMLODIPINE 5 MG TABLET PO SCH (08:00)
[2018-06-06 14:40] VITALS: BP 138/89
[2018-06-06 20:00] VITALS: BP 109/72
[2018-06-06 20:23] VITALS: BP 119/82
[2018-06-06] MEDS: ATORVASTATIN 80 MG TABLET GT SCH (20:24)
[2018-06-07 07:32] VITALS: BP 134/81
[2018-06-07] MEDS: METOPROLOL TARTRATE 50 MG TABLET GT SCH ×2 (09:17→21:54)
[2018-06-07 09:18] VITALS: BP 124/79
[2018-06-07] MEDS: AMLODIPINE 5 MG TABLET PO SCH (09:18)
[2018-06-07 13:27] VITALS: BP 119/77
[2018-06-07 18:58] VITALS: BP 98/65
[2018-06-07 21:47] VITALS: BP 112/71
[2018-06-07] MEDS: ATORVASTATIN 80 MG TABLET GT SCH (21:54)
[2018-06-08 01:18] VITALS: BP 132/87
[2018-06-08 07:28] VITALS: BP 146/92
[2018-06-08 10:04] VITALS: BP 138/92
[2018-06-08] MEDS: METOPROLOL TARTRATE 50 MG TABLET GT SCH ×2 (10:05→21:44)
[2018-06-08] MEDS: AMLODIPINE 5 MG TABLET PO SCH (10:05)
[2018-06-08 14:46] VITALS: BP 132/89
[2018-06-08 18:30] VITALS: BP 116/74
[2018-06-08 21:32] VITALS: BP 138/83
[2018-06-08] MEDS: ATORVASTATIN 80 MG TABLET GT SCH (21:44)
[2018-06-09 00:30] VITALS: BP 120/80
[2018-06-09 06:40] VITALS: BP 139/93
[2018-06-09] MEDS: METOPROLOL TARTRATE 50 MG TABLET GT SCH ×2 (08:47→21:42)
[2018-06-09] MEDS: ACETAMINOPHEN 325 MG TABLET GT PRN ×2 (08:47→16:37)
[2018-06-09] MEDS: AMLODIPINE 5 MG TABLET PO SCH (08:47)
[2018-06-09 13:41] VITALS: BP 130/89
[2018-06-09 20:00] VITALS: BP 137/84
[2018-06-09 21:15] VITALS: BP 144/91
[2018-06-09] MEDS: ATORVASTATIN 80 MG TABLET GT SCH (21:41)
[2018-06-10 01:28] VITALS: BP 154/81
[2018-06-10 07:02] VITALS: BP 142/85
[2018-06-10 09:44] LABS: MEAN CORPUSCULAR HEMOGLOBIN 26.4 pg (27.0-34.8); MEAN CORPUSCULAR HGB CONC 33.2 g/dL (32.4-35.8); MEAN CORPUSCULAR VOLUME 79.6 fL (80-100); RED BLOOD COUNT 5.26 x10^6/uL (3.82-5.3); RED CELL DISTRIBUTION WIDTH 16.3 % (9.6-15.2)
[2018-06-10 09:45] LABS: PLATELET COUNT 204 x10^3/uL (130-400)
[2018-06-10 09:49] LABS: MD YES
[2018-06-10 09:52] LABS: BANDS%(MANUAL) 1 % (0-7); BASOS% (MANUAL) 1 % (0-1); EOS% (MANUAL) 1 % (1-7); LYMPH#(MANUAL) 3.17 x10^3/uL (1-3.4); LYMPHS% (MANUAL) 33 % (22-44); METAMYELOCYTES% (MANUAL) 1 % (0-1); MONOS#(MANUAL) 0.77 x10^3/uL (0.3-2.7); MONOS% (MANUAL) 8 % (2-9); SEG#(MANUAL) 5.28 x10^3/uL (1.8-6.8); SEGS% (MANUAL) 55 % (42-75)
[2018-06-10 09:53] LABS: <PLATELET ESTIMATE> ADEQUATE; <RBC MORPHOLOGY> NORMAL; LARGE PLATELETS 1+
[2018-06-10] MEDS ORDERED: FUROSEMIDE 20 MG/2 ML IV ONE (10:30)
[2018-06-10] MEDS: AMLODIPINE 5 MG TABLET PO SCH (10:55)
[2018-06-10] MEDS: METOPROLOL TARTRATE 50 MG TABLET GT SCH ×2 (10:55→20:31)
[2018-06-10 13:56] VITALS: BP 139/80
[2018-06-10 16:58] LABS: MICROSCOPIC INDICATED
[2018-06-10 18:28] VITALS: BP 125/75
[2018-06-10] MEDS: ATORVASTATIN 80 MG TABLET GT SCH (20:31)
[2018-06-10] MEDS ORDERED: CEFDINIR 300 MG CAPSULE PO SCH (21:00)
[2018-06-10] MEDS: CEFDINIR 250 MG/5 ML, ORAL SUSP PO SCH (22:19)
[2018-06-11 02:45] VITALS: BP 128/78
[2018-06-11 07:25] VITALS: BP 132/74
[2018-06-11] MEDS: CEFDINIR 250 MG/5 ML, ORAL SUSP PO SCH ×2 (11:39→20:47)
[2018-06-11] MEDS: AMLODIPINE 5 MG TABLET PO SCH (11:40)
[2018-06-11] MEDS: METOPROLOL TARTRATE 50 MG TABLET GT SCH ×2 (11:40→20:47)
[2018-06-11 13:27] VITALS: BP 106/70
[2018-06-11 20:20] VITALS: BP 134/87
[2018-06-11] MEDS: ATORVASTATIN 80 MG TABLET GT SCH (20:47)
[2018-06-12 03:29] VITALS: BP 126/79
[2018-06-12 07:04] VITALS: BP 129/74
[2018-06-12] MEDS: AMLODIPINE 5 MG TABLET PO SCH (08:40)
[2018-06-12] MEDS: METOPROLOL TARTRATE 50 MG TABLET GT SCH ×2 (08:41→21:47)
[2018-06-12] MEDS: CEFDINIR 250 MG/5 ML, ORAL SUSP PO SCH (08:41)
[2018-06-12 18:35] VITALS: BP 124/72
[2018-06-12] MEDS: ATORVASTATIN 80 MG TABLET GT SCH (21:46)
[2018-06-12] MEDS: CEFDINIR 125 MG/5 ML, ORAL SUSP PO SCH (21:46)
[2018-06-13 08:07] VITALS: BP 131/86
[2018-06-13] MEDS: METOPROLOL TARTRATE 50 MG TABLET GT SCH ×2 (09:49→21:48)
[2018-06-13] MEDS: AMLODIPINE 5 MG TABLET PO SCH (09:49)
[2018-06-13] MEDS: CEFDINIR 125 MG/5 ML, ORAL SUSP PO SCH ×2 (09:51→21:48)
[2018-06-13 13:20] VITALS: BP 102/69
[2018-06-13 19:46] VITALS: BP 123/77
[2018-06-13] MEDS: ATORVASTATIN 80 MG TABLET GT SCH (21:48)
[2018-06-14 00:58] VITALS: BP 133/83
[2018-06-14 07:38] VITALS: BP 123/83
[2018-06-14] MEDS: AMLODIPINE 5 MG TABLET PO SCH (07:51)
[2018-06-14] MEDS: METOPROLOL TARTRATE 50 MG TABLET GT SCH ×2 (07:51→22:15)
[2018-06-14] MEDS: CEFDINIR 250 MG/5 ML, ORAL SUSP PO SCH ×2 (07:51→22:15)
[2018-06-14 12:52] VITALS: BP 101/68
[2018-06-14 19:48] VITALS: BP 119/82
[2018-06-14] MEDS: ATORVASTATIN 80 MG TABLET GT SCH (22:15)
[2018-06-15 01:35] VITALS: BP 116/78
[2018-06-15] MEDS: CEFDINIR 250 MG/5 ML, ORAL SUSP PO SCH ×2 (08:34→22:52)
[2018-06-15] MEDS: METOPROLOL TARTRATE 50 MG TABLET GT SCH ×2 (08:34→22:51)
[2018-06-15] MEDS: AMLODIPINE 5 MG TABLET PO SCH (08:34)
[2018-06-15 09:46] VITALS: BP 125/79
[2018-06-15 13:29] VITALS: BP 120/76
[2018-06-15 20:00] VITALS: BP 121/82
[2018-06-15] MEDS: ATORVASTATIN 80 MG TABLET GT SCH (22:51)
[2018-06-16 00:53] VITALS: BP 128/80
[2018-06-16 07:23] VITALS: BP 132/78
[2018-06-16] MEDS: AMLODIPINE 5 MG TABLET PO SCH (08:27)
[2018-06-16] MEDS: METOPROLOL TARTRATE 50 MG TABLET GT SCH ×2 (08:27→21:50)
[2018-06-16] MEDS: CEFDINIR 250 MG/5 ML, ORAL SUSP PO SCH ×2 (08:39→21:44)
[2018-06-16 19:01] VITALS: BP 117/73
[2018-06-16] MEDS: ATORVASTATIN 80 MG TABLET GT SCH (21:43)
[2018-06-16 21:48] VITALS: BP 123/78
[2018-06-17 01:24] VITALS: BP 137/93
[2018-06-17 07:18] VITALS: BP 130/82
[2018-06-17] MEDS: CEFDINIR 250 MG/5 ML, ORAL SUSP PO SCH ×2 (07:53→20:46)
[2018-06-17] MEDS: METOPROLOL TARTRATE 50 MG TABLET GT SCH ×2 (07:53→20:47)
[2018-06-17] MEDS: AMLODIPINE 5 MG TABLET PO SCH (07:53)
[2018-06-17 12:38] VITALS: BP 136/78
[2018-06-17 19:23] VITALS: BP 129/82
[2018-06-17] MEDS: ATORVASTATIN 80 MG TABLET GT SCH (20:46)
[2018-06-18 01:40] VITALS: BP 117/81
[2018-06-18 06:50] VITALS: BP 124/79
[2018-06-18] MEDS: AMLODIPINE 5 MG TABLET PO SCH (09:06)
[2018-06-18] MEDS: CEFDINIR 250 MG/5 ML, ORAL SUSP PO SCH ×2 (09:07→20:55)
[2018-06-18] MEDS: METOPROLOL TARTRATE 50 MG TABLET GT SCH ×2 (09:07→20:53)
[2018-06-18 12:41] VITALS: BP 109/71
[2018-06-18 20:07] VITALS: BP 110/70
[2018-06-18] MEDS: ATORVASTATIN 80 MG TABLET GT SCH (20:53)
[2018-06-19 01:13] VITALS: BP 146/78
[2018-06-19 07:19] VITALS: BP 120/78
[2018-06-19] MEDS: METOPROLOL TARTRATE 50 MG TABLET GT SCH ×2 (08:50→20:34)
[2018-06-19] MEDS: AMLODIPINE 5 MG TABLET PO SCH (08:51)
[2018-06-19] MEDS: CEFDINIR 250 MG/5 ML, ORAL SUSP PO SCH ×2 (08:51→20:34)
[2018-06-19 13:58] VITALS: BP 123/79
[2018-06-19 18:07] LABS: CREATININE 0.59 mg/dL (0.55-1.02)
[2018-06-19 20:04] VITALS: BP 131/72
[2018-06-19] MEDS: ATORVASTATIN 80 MG TABLET GT SCH (20:33)
[2018-06-20] MEDS: METOPROLOL TARTRATE 50 MG TABLET GT SCH ×2 (07:41→20:37)
[2018-06-20] MEDS: AMLODIPINE 5 MG TABLET PO SCH (07:41)
[2018-06-20 07:50] VITALS: BP 134/76
[2018-06-20] MEDS: CEFDINIR 250 MG/5 ML, ORAL SUSP PO SCH ×2 (11:05→20:46)
[2018-06-20 12:40] VITALS: BP 125/66
[2018-06-20 19:44] VITALS: BP 114/76
[2018-06-20] MEDS: ATORVASTATIN 80 MG TABLET GT SCH (20:37)
[2018-06-21 01:08] VITALS: BP 108/64
[2018-06-21] MEDS: METOPROLOL TARTRATE 50 MG TABLET GT SCH ×2 (07:30→21:29)
[2018-06-21] MEDS: AMLODIPINE 5 MG TABLET PO SCH (07:30)
[2018-06-21 07:46] VITALS: BP 127/82
[2018-06-21] MEDS: CEFDINIR 250 MG/5 ML, ORAL SUSP PO SCH ×2 (08:35→21:29)
[2018-06-21 12:39] VITALS: BP 121/74
[2018-06-21 18:44] VITALS: BP 108/69
[2018-06-21] MEDS: ATORVASTATIN 80 MG TABLET GT SCH (21:29)
[2018-06-22 00:30] VITALS: BP 117/79
[2018-06-22 07:12] VITALS: BP 119/82
[2018-06-22] MEDS: AMLODIPINE 5 MG TABLET PO SCH (09:52)
[2018-06-22] MEDS: CEFDINIR 250 MG/5 ML, ORAL SUSP PO SCH ×2 (09:52→20:28)
[2018-06-22] MEDS: METOPROLOL TARTRATE 50 MG TABLET GT SCH ×2 (09:52→20:29)
[2018-06-22 13:09] VITALS: BP 114/77
[2018-06-22 18:33] VITALS: BP 115/71
[2018-06-22] MEDS: ATORVASTATIN 80 MG TABLET GT SCH (20:29)
[2018-06-23 01:34] VITALS: BP 120/77
[2018-06-23 06:37] VITALS: BP 124/79
[2018-06-23] MEDS: METOPROLOL TARTRATE 50 MG TABLET GT SCH ×2 (09:08→20:31)
[2018-06-23] MEDS: AMLODIPINE 5 MG TABLET PO SCH (09:08)
[2018-06-23 13:09] VITALS: BP 108/71
[2018-06-23 19:32] VITALS: BP 104/72
[2018-06-23] MEDS: ATORVASTATIN 80 MG TABLET GT SCH (20:31)
[2018-06-24 01:19] VITALS: BP 137/84
[2018-06-24 07:05] VITALS: BP 124/78
[2018-06-24] MEDS: AMLODIPINE 5 MG TABLET PO SCH (08:11)
[2018-06-24] MEDS: METOPROLOL TARTRATE 50 MG TABLET GT SCH (08:12)
[2018-06-24 12:21] VITALS: BP 112/76
== END 2018-06-24 15:48 | disposition hospice, home (50) | DRG 64 ==
LOC: ED 15:59 → CCU 16:00 → ED 17:10 → ICU 12-11 03:40 → CCU 12-11 16:18 → ICU 12-11 16:22 → CCU 12-11 17:17 → 4EST 12-13 11:33
PROVIDERS: ADMIT Hospitalist; ATTEND Internal Medicine
PROC: 0T9B70Z Drainage of Bladder with Drainage Device, Via Natural or Artificial Opening (ICD-10-PCS; 2017-12-10)
PROC: 0DH63UZ Insertion of Feeding Device into Stomach, Percutaneous Approach (ICD-10-PCS; principal; 2017-12-23 10:00)
DX: I61.0 Nontraumatic intracerebral hemorrhage in hemisphere, subcortical (principal); J15.211 Pneumonia due to Methicillin susceptible Staphylococcus aureus; E43 Unspecified severe protein-calorie malnutrition; G93.41 Metabolic encephalopathy; J96.01 Acute respiratory failure with hypoxia; J69.0 Pneumonitis due to inhalation of food and vomit; J44.0 Chronic obstructive pulmonary disease with (acute) lower respiratory infection; N39.0 Urinary tract infection, site not specified; G81.91 Hemiplegia, unspecified affecting right dominant side; R47.01 Aphasia; I61.5 Nontraumatic intracerebral hemorrhage, intraventricular; B96.20 Unspecified Escherichia coli [E. coli] as the cause of diseases classified elsewhere; E78.5 Hyperlipidemia, unspecified; I10 Essential (primary) hypertension; I27.20 Pulmonary hypertension, unspecified; R13.12 Dysphagia, oropharyngeal phase; F01.50 Vascular dementia, unspecified severity, without behavioral disturbance, psychotic disturbance, mood disturbance, and anxiety; Z66 Do not resuscitate; K56.41 Fecal impaction; Z68.26 Body mass index [BMI] 26.0-26.9, adult; Z75.1 Person awaiting admission to adequate facility elsewhere
CPT/HCPCS: 36415; 70450; 70553; 71045; 74018; 74230; 80048; 80053; 80061; 81001; 81003; 82040; 82140; 82565; 82607; 82962; 83605; 83735; 84100; 84443; 84520; 85025; 85610; 86480; 87040; 87070; 87077; 87081; 87086; 87186; 87205; 93005; 94640; 96374; 99291; A9585; B4087; G0378; J0690; J0696; J2543; J2704; J3370; J7060; J7613; 92523-GN; J1940; J7030; J7050; S0028